=== PATIENT | female | born 1980 | race African-American/Black ===

== ENCOUNTER 2016-04-14 19:59 | Emergency (ER) | payer SELFPAY ==
--- NOTE | 2016-04-14 20:32 | ER Document Report ---
ED Medical Screen (RME) - General Stated Complaint: LEFT SIDE PAIN Notes: Left sided sore throat headache torso pain I greeted and performed a rapid initial assessment of this patient. Comprehensive ED assessment and evaluation of the patient, analysis of test results and completion of the medical decision making process will be conducted by additional ED providers. TRAVEL OUTSIDE OF THE [place] IN LAST 30 DAYS: Yes COUNTRY TRAVELED TO/FROM: [facility] - Related Data Allergies/Adverse Reactions: Penicillins Allergy (Verified 02/01/16 18:39) Past Medical History Neurological Medical History: Reports: Hx Migraine Renal/ Medical History: Denies: Hx Ectopic GI Medical History: Reports: Hx Gastroesophageal Reflux Disease Musculoskeltal Medical History: Reports Hx Musculoskeletal Trauma Psychiatric Medical History: Reports: Hx Depression - anxiety Traumatic Medical History: Reports: Hx Fractures Past Surgical History: Reports: Hx Oral Surgery, Hx Tubal Ligation - Immunizations Immunizations up to date: No Hx Diphtheria, Pertussis, Tetanus Vaccination: No - Tetanus
[2016-04-14] MEDS ORDERED: HYDROCODONE/ACETAMINOPHEN 5-325 MG TABLET PO ONE (21:52)
[2016-04-14] MEDS ORDERED: CLINDAMYCIN HCL 150 MG CAPSULE PO ONE (21:52)
--- NOTE | 2016-04-14 21:53 | ER Document Report ---
ED ENT - General Chief Complaint: Pain All Over Stated Complaint: LEFT SIDE PAIN Time seen by provider: 21:53 Mode of Arrival: Ambulatory Information source: Patient TRAVEL OUTSIDE OF THE [place] IN LAST 30 DAYS: Yes COUNTRY TRAVELED TO/FROM: [facility] - HPI Patient complains to provider of: Nose problem, Throat problem Onset: Yesterday Onset/Duration: Persistent Quality of pain: Achy Severity: Moderate Pain Level: 3 Location of pain: Ears, Sinus, Throat Associated symptoms: Congestion, Headache, Sinus pain, Sore throat Similar symptoms previously: No Recently seen / treated by doctor: No Notes: Patient is a 35-year-old female with no past medical history presenting to the emergency room complaining of sore throat, body aches, nasal congestion, headache, symptoms have been going on for the past 2 days, she denies a fever, nonproductive cough, no nausea, vomiting or diarrhea, patient reports her children of been sick with upper respiratory symptoms recently, patient is a smoker - Related Data Allergies/Adverse Reactions: Penicillins Allergy (Verified 02/01/16 18:39) Past Medical History - General Information source: Patient - Social History Smoking Status: Current Every Day Smoker Family History: Reviewed & Not Pertinent, Arthritis, CAD, DM, Hyperlipidemia, Hypertension, Malignancy Patient has suicidal ideation: No Patient has homicidal ideation: No Neurological Medical History: Reports: Hx Migraine Renal/ Medical History: Denies: Hx Ectopic , Hx Peritoneal Dialysis GI Medical History: Reports: Hx Gastroesophageal Reflux Disease Musculoskeltal Medical History: Reports Hx Musculoskeletal Trauma Psychiatric Medical History: Reports: Hx Depression - anxiety Traumatic Medical History: Reports: Hx Fractures Past Surgical History: Reports: Hx Oral Surgery, Hx Tubal Ligation - Immunizations Immunizations up to date: No Hx Diphtheria, Pertussis, Tetanus Vaccination: No - Tetanus Review of Systems - Review of Systems Constitutional: No symptoms reported EENT: See HPI Cardiovascular: No symptoms reported Respiratory: No symptoms reported Gastrointestinal: No symptoms reported Genitourinary: No symptoms reported Female Genitourinary: No symptoms reported Musculoskeletal: See HPI Skin: No symptoms reported Hematologic/Lymphatic: No symptoms reported Neurological/Psychological: See HPI -: Yes All other systems reviewed and negative Physical Exam - Vital signs Vitals: Temp Pulse Resp BP Pulse Ox 98.1 F 86 20 117/68 98 04/14/16 20:22 04/14/16 20:22 04/14/16 20:22 04/14/16 20:22 04/14/16 20:22 Interpretation: Normal - General General appearance: Alert Notes: Patient appears uncomfortable - HEENT Head: Normocephalic, Atraumatic Eyes: Normal Conjunctiva: Normal Extraocular movements intact: Yes Eyelashes: Normal Pupils: PERRL Pharynx: Erythema, Exudate, Tonsillar hypertrophy Neck: Normal - Respiratory Respiratory status: No respiratory distress Chest status: Nontender Breath sounds: Normal Chest palpation: Normal - Cardiovascular Rhythm: Regular Heart sounds: Normal auscultation Murmur: No - Abdominal Inspection: Normal Distension: No distension Bowel sounds: Normal Tenderness: Nontender Organomegaly: No organomegaly - Back Back: Normal, Nontender - Extremities General upper extremity: Normal inspection, Nontender, Normal color, Normal ROM , Normal temperature General lower extremity: Normal inspection, Nontender, Normal color, Normal ROM , Normal temperature, Normal weight bearing. No: Nelson's sign - Neurological Neuro grossly intact: Yes Cognition: Normal Orientation: AAOx4 [place] Coma Scale Eye Opening: Spontaneous [place] Coma Scale Verbal: Oriented [place] Coma Scale Motor: Obeys Commands One[place] Coma Scale Total: 15 Speech: Normal Motor strength normal: LUE, RUE, LLE, RLE Sensory: Normal - Psychological Associated symptoms: Normal affect, Normal mood - Skin Skin Temperature: Warm Skin Moisture: Dry Skin Color: Normal Course - Re-evaluation Re-evalutation: 04/15/16 00:47 Patient physical exam findings consistent with strep pharyngitis, she was started on antibiotics for this, advised to rest, drink plenty of fluids, follow up with a primary care provider or return if symptoms worsen, patient acknowledges understanding and agreement with this plan - Vital Signs Vital signs: Temp Pulse Resp BP Pulse Ox 98.2 F 85 16 120/69 100 04/14/16 22:13 04/14/16 22:13 04/14/16 22:13 04/14/16 22:13 04/14/16 22:13 Discharge - Discharge Clinical Impression: Strep pharyngitis Condition: Stable Disposition: HOME, SELF-CARE Instructions: Strep Throat ([facility]), Oral Narcotic Medication ([facility]) Additional Instructions: Follow up with your primary care provider in one to 2 days. Return to the emergency room immediately if symptoms worsen or any additional concerns. Drink plenty fluids and get plenty or rest. Tylenol or Motrin as needed for pain or fever. Prescriptions: Clindamycin HCl 300 mg PO TID #30 capsule Hydrocodone/Acetaminophen [Hydrocodon-Acetaminophen 5-325] 1 each PO Q6 #20 tablet Referrals: EARNEST BRUNO MD [Primary Care Provider] - Follow up as needed
[2016-04-14] MEDS ORDERED: HYDROCODONE/ACETAMINOPHEN 5-325 MG 6 TAB/DSPK PO PRN (22:04)
[2016-04-14 22:32] VITALS: BP 120/69
== END 2016-04-14 22:13 | disposition home or self-care (01) ==
LOC: ER 19:59
DX: J02.0 Streptococcal pharyngitis (principal); M79.1 Myalgia; R51 Headache; F17.200 Nicotine dependence, unspecified, uncomplicated; Z88.0 Allergy status to penicillin; Z98.51 Tubal ligation status
CPT/HCPCS: 99283

== ENCOUNTER 2016-05-25 21:45 | Emergency (ER) | payer SELFPAY ==
[2016-05-25] MEDS ORDERED: ONDANSETRON HCL INJ/PF 4 MG/2 ML SDV IV ONE (21:47)
[2016-05-25] MEDS ORDERED: NORMAL SALINE 1000 ML 1,000 ML IV PRN (21:47)
[2016-05-25] MEDS ORDERED: KETOROLAC TROMETHAMINE INJ/PF 30 MG/1 ML SDV IV ONE (21:48)
--- NOTE | 2016-05-25 21:48 | ER Document Report ---
ED Flu Like - General Stated Complaint: POSSIBLE FLU SYMPTOMS Time seen by provider: 21:48 Mode of Arrival: Ambulatory Information source: Patient TRAVEL OUTSIDE OF THE [place] IN LAST 30 DAYS: Yes - Related Data Allergies/Adverse Reactions: Penicillins Allergy (Verified 02/01/16 18:39) Past Medical History - Social History Family History: Reviewed & Not Pertinent, Arthritis, CAD, DM, Hyperlipidemia, Hypertension, Malignancy Neurological Medical History: Reports: Hx Migraine Renal/ Medical History: Denies: Hx Ectopic , Hx Peritoneal Dialysis GI Medical History: Reports: Hx Gastroesophageal Reflux Disease Musculoskeltal Medical History: Reports Hx Musculoskeletal Trauma Psychiatric Medical History: Reports: Hx Depression - anxiety Traumatic Medical History: Reports: Hx Fractures Past Surgical History: Reports: Hx Oral Surgery, Hx Tubal Ligation - Immunizations Immunizations up to date: No Hx Diphtheria, Pertussis, Tetanus Vaccination: No - Tetanus
--- NOTE | 2016-05-25 21:57 | ER Document Report ---
ED Flu Like - General Stated Complaint: POSSIBLE FLU SYMPTOMS Time seen by provider: 21:55 Mode of Arrival: Ambulatory Information source: Patient TRAVEL OUTSIDE OF THE [place] IN LAST 30 DAYS: Yes - HPI Patient complains to provider of: fever, body aches, nausea, vomiting, diarrhea Onset: Other - 3 days Timing/Duration: Persistent Quality of pain: Achy Severity: Moderate Pain Level: 2 Associated symptoms: Body/muscle aches, Chills, Diarrhea, Fever, Nausea, Vomiting Similar symptoms previously: No Recently seen / treated by doctor: No Notes: Patient is a 35-year-old female with no past medical history who presents to the emergency room complaining of flulike symptoms 3-4 days, with body aches, fever of 102.1, nausea, vomiting, diarrhea, patient reports multiple sick contacts recently as well, including her son who is being seen in the emergency room for these symptoms as well, patient did not receive a flu vaccination this season - Related Data Allergies/Adverse Reactions: Penicillins Allergy (Verified 02/01/16 18:39) Past Medical History - General Information source: Patient - Social History Smoking Status: Unknown if Ever Smoked Family History: Reviewed & Not Pertinent, Arthritis, CAD, DM, Hyperlipidemia, Hypertension, Malignancy Neurological Medical History: Reports: Hx Migraine Renal/ Medical History: Denies: Hx Ectopic , Hx Peritoneal Dialysis GI Medical History: Reports: Hx Gastroesophageal Reflux Disease Musculoskeltal Medical History: Reports Hx Musculoskeletal Trauma Psychiatric Medical History: Reports: Hx Depression - anxiety Traumatic Medical History: Reports: Hx Fractures Past Surgical History: Reports: Hx Oral Surgery, Hx Tubal Ligation - Immunizations Immunizations up to date: No Hx Diphtheria, Pertussis, Tetanus Vaccination: No - Tetanus Review of Systems - Review of Systems Constitutional: See HPI EENT: No symptoms reported Cardiovascular: No symptoms reported Respiratory: No symptoms reported Gastrointestinal: See HPI Genitourinary: No symptoms reported Female Genitourinary: No symptoms reported Musculoskeletal: See HPI Skin: No symptoms reported Hematologic/Lymphatic: No symptoms reported Neurological/Psychological: No symptoms reported -: Yes All other systems reviewed and negative Physical Exam - Vital signs Interpretation: Normal - General General appearance: Appears well, Alert - HEENT Head: Normocephalic, Atraumatic Eyes: Normal Conjunctiva: Normal Extraocular movements intact: Yes Eyelashes: Normal Pupils: PERRL Mucous membranes: Normal Pharynx: Erythema. No: Exudate, Tonsillar hypertrophy Neck: Normal - Respiratory Respiratory status: No respiratory distress Chest status: Nontender Breath sounds: Normal Chest palpation: Normal - Cardiovascular Rhythm: Regular Heart sounds: Normal auscultation Murmur: No - Abdominal Inspection: Normal Distension: No distension Bowel sounds: Normal Tenderness: Nontender Organomegaly: No organomegaly - Back Back: Normal, Nontender - Extremities General upper extremity: Normal inspection, Nontender, Normal color, Normal ROM , Normal temperature General lower extremity: Normal inspection, Nontender, Normal color, Normal ROM , Normal temperature, Normal weight bearing. No: Nelson's sign - Neurological Neuro grossly intact: Yes Cognition: Normal Orientation: AAOx4 [place] Coma Scale Eye Opening: Spontaneous [place] Coma Scale Verbal: Oriented [place] Coma Scale Motor: Obeys Commands One[place] Coma Scale Total: 15 Speech: Normal Motor strength normal: LUE, RUE, LLE, RLE Sensory: Normal - Psychological Associated symptoms: Normal affect, Normal mood - Skin Skin Temperature: Warm Skin Moisture: Dry Skin Color: Normal Course - Re-evaluation Re-evalutation: 05/25/16 23:20 Patient resting comfortably, reports feeling much better after IV fluids and medications, lab findings were discussed with her at bedside which are consistent with influenza B, patient was advised for supportive care, her symptoms have been going on for 3 or 4 days of Tamiflu would not be indicated at this point in time, she was advised to follow-up with her primary care provider or return if symptoms worsen, patient acknowledges understanding and agreement with this plan - Laboratory Result Diagrams: 05/25/16 22:34 05/25/16 22:34 Laboratory results interpreted by me: 05/25/16 05/25/16 22:34 22:34 Monocytes % 14.3 H Sodium 136.7 L Discharge - Discharge Clinical Impression: Influenza B Condition: Stable Disposition: HOME, SELF-CARE Instructions: Influenza ([facility]) Additional Instructions: Encourage plenty fluids. Tylenol or Motrin as needed for fever. Follow-up with your primary care provider in one to 2 days. Return to the emergency room immediately if symptoms worsen or any additional concerns.
[2016-05-25 22:52] LABS: ABSOLUTE LYMPHOCYTES (AUTO) 1.2 10^3/uL (0.5-4.7); ABSOLUTE MONOCYTES (AUTO) 0.7 10^3/uL (0.1-1.4); ABSOLUTE NEUT (AUTO) 3.1 10^3/uL (1.7-8.2); BASOPHILS % (AUTO) 0.3 % (0-2); EOSINOPHILS % (AUTO) 0.1 % (0-6); HEMATOCRIT 41.4 % (36.0-47.0); HEMOGLOBIN 13.9 g/dL (12.0-15.5); HGB HCT DIFFERENCE 0.3; LYMPHOCYTES % (AUTO) 23.3 % (13-45); MEAN CORPUSCULAR HEMOGLOBIN 28.5 pg (27.0-33.4); MEAN CORPUSCULAR HGB CONC 33.7 g/dL (32.0-36.0); MEAN CORPUSCULAR VOLUME 85 fl (80-97); MONOCYTES % (AUTO) 14.3 % (3-13); RED BLOOD COUNT 4.89 10^6/uL (3.72-5.28); RED CELL DISTRIBUTION WIDTH 13.1 % (11.5-14.0); WHITE BLOOD COUNT 4.9 10^3/uL (4.0-10.5)
[2016-05-25 23:09] LABS: BLOOD UREA NITROGEN 11 mg/dL (7-20); CARBON DIOXIDE 22 mmol/L (22-30); CHLORIDE 103 mmol/L (98-107); CREATININE RESULT 0.73 mg/dL (0.52-1.25); GLUCOSE 92 mg/dL (75-110); POTASSIUM 3.6 mmol/L (3.6-5.0); SODIUM 136.7 mmol/L (137-145)
[2016-05-25 23:10] LABS: ALANINE AMINOTRANSFERASE 28 U/L (9-52); ALKALINE PHOSPHATASE 105 U/L (38-126); ANION GAP 12 (5-19); ASPARTATE AMINO TRANSFERASE 24 U/L (14-36); BILIRUBIN,TOTAL 0.4 mg/dL (0.2-1.3); TOTAL PROTEIN 7.3 g/dL (6.3-8.2)
[2016-05-26 00:11] LABS: APPEARANCE,URINE SLIGHTLY-CLOUDY; BILIRUBIN,URINE NEGATIVE (NEGATIVE); GLUCOSE, URINE NEGATIVE (NEGATIVE); KETONES,URINE TRACE mg/dL (NEGATIVE); LEUKOCYTE ESTERASE,URINE NEGATIVE (NEGATIVE); NITRITE,URINE NEGATIVE (NEGATIVE); PROTEIN,URINE NEGATIVE (NEGATIVE); UROBILINOGEN,URINE NEGATIVE mg/dL (<2.0)
== END 2016-05-26 00:23 | disposition home or self-care (01) ==
LOC: ER 21:45
DX: J11.1 Influenza due to unidentified influenza virus with other respiratory manifestations (principal); R50.9 Fever, unspecified; M79.1 Myalgia; R11.2 Nausea with vomiting, unspecified; R19.7 Diarrhea, unspecified; Z88.0 Allergy status to penicillin; Z98.51 Tubal ligation status
CPT/HCPCS: 99283; 96361; 96374; 96375; 36415; 84703; 85025; 80053; 81001; 87804; J1885; J2405; J7030

== ENCOUNTER → 2016-10-16 | Outpatient (CLI) | payer MEDICAID ==
--- NOTE | 2016-10-16 11:44 | WOMENS IMAGING REPORT ---
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 IMPRESSION: Please see combined report for performance of procedure and radiologic supervision and i nterpretation.
--- NOTE | 2016-10-17 08:32 | WOMENS IMAGING REPORT ---
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 TECHNIQUE: Standard craniocaudal and mediolateral oblique views of each breast recorded using digita l acquisition. Additional true lateral views of each breast were obtained. LIMITATIONS: None. FINDINGS: RIGHT BREAST MASSES: No suspicious masses. CALCIFICATIONS: No new or suspicious calcifications. ARCHITECTURAL DISTORTION: None. DEVELOPING DENSITY: None. ASYMMETRY: None noted. OTHER: Due to the patient's clinical history ultrasound will be obtained for further evaluation. LEFT BREAST MASSES: No suspicious masses. CALCIFICATIONS: No new or suspicious calcifications. ARCHITECTURAL DISTORTION: None. DEVELOPING DENSITY: None. ASYMMETRY: None noted. OTHER: Due to the patient's clinical history ultrasound will be obtained for further evaluation. Read with the assistance of CAD: .[facility] - R2 Cenova Version 1.3 .[facility] - R2 Cenova Version 1.3 .[facility] - R2 Cenova Version 2.4 .[facility] - R2 Cenova Version 2.4 .[facility] - R2 Pricing Analyst Version 9.2 BREAST ULTRASOUND: TECHNIQUE: Static and dynamic grayscale images acquired of the right and left breast in the specific areas of clinical/mammographic concern. Selected color Doppler images recorded. ELASTOGRAPHY PERFORMED: No. LIMITATIONS: None. FINDINGS: MASS: In the right breast 2 small well demarcated ovoid hypoechoic masses are identified 1 measuring 1.5 x 0.8 x 1 point 0 cm and a 2nd measuring 1.3 x 0.6 x 1.1 cm in diameters which have the appearanc e of small fibroadenomas. In the left breast 3 small well demarcated ovoid hypoechoic masses are kimber ntified 1 measuring 1.4 x 0.9 x 1.7 cm in diameters, a 2nd measuring 1.3 x 0.9 x 1.1 cm in diameters, and a 3rd measuring 5 x 6 mm in diameters which have the appearance of small fibroadenomas. No othe r discrete solid or cystic masses are identified. ELASTOGRAPHY CHARACTERISTICS: Not applicable. OTHER: No other significant finding. IMPRESSION: Probably benign findings BREAST DENSITY: c. The breasts are heterogeneously dense, which may obscure small masses. BIRAD: 3 Probably benign finding. Initial short-interval follow-up suggested. RECOMMENDATION: RECOMMENDED FOLLOW UP: Recommend followup breast ultrasounds in 6 months to confirm the stability of these lesions. SPECIFIC INTERVENTION/IMAGING/CONSULTATION RECOMMENDED:No additional intervention/ imaging/consultati on needed at this time. COMMUNICATION:The imaging findings were not discussed with the patient. Her referring provider has be en notified of the findings. COMMENT: The patient has been notified of the results by letter per [place] requirements. Additional no tification policies are in place for contacting patient with suspicious or incomplete findings. Quality ID #[id number]: The [employer] recommends an annual screening mammogram for women aged 40 years or over. This facility utilizes a reminder system to ensure that all patients receive reminder letters, and/or direct phone calls for appointments. This includes reminders for routine scr eening mammograms, diagnostic mammograms, or other Breast Imaging Interventions when appropriate. Th is patient will be placed in the appropriate reminder system. The [employer] (ACR) has developed recommendations for screening MRI of the breast s in certain patient populations, to be used in conjunction with mammography. Breast MRI surveillanc e may be appropriate for women with more than 20% lifetime risk of developing breast cancer as deter mined by genetic testing, significant family history of the disease, or history of mantle radiation f or Hodgkins Disease. ACR Practice Guidelines 2008. TECHNICAL DOCUMENTATION: FINDING NUMBER: (1) ASSESSMENT: (1) JOB ID: [id number] [employer]- All Rights Reserved
== END ==
LOC: WI 11:33
PROVIDERS: ATTEND Physician Assistant
DX: N60.11 Diffuse cystic mastopathy of right breast (principal)
CPT/HCPCS: 76641; G0204; 77066

== ENCOUNTER 2017-02-05 19:20 | Emergency (ER) | payer MEDICAID ==
[2017-02-05] MEDS ORDERED: PSEUDOEPHEDRINE HCL 30 MG TABLET PO ONE (21:12)
[2017-02-05] MEDS ORDERED: LORATADINE 10 MG TABLET PO ONE (21:12)
[2017-02-05] MEDS ORDERED: GUAIFENESIN 600 MG TABLET.SA PO ONE (21:12)
[2017-02-05] MEDS ORDERED: IBUPROFEN 800 MG TABLET PO ONE (21:13)
--- NOTE | 2017-02-05 21:19 | ER Document Report ---
ED Flu Like - General Chief Complaint: Cough Stated Complaint: COUGH,CONGESTION Time Seen by Provider: 02/05/17 20:51 Mode of Arrival: Ambulatory Information source: Patient Notes: 36-year-old female presents to ED for cough cold congestion 4 days. She states she has been taking [id number] Robitussin and cough medicine. She states she has fevers and chills at times. TRAVEL OUTSIDE OF THE [place] IN LAST 30 DAYS: No - HPI Onset: Other - 4 days Timing/Duration: Intermittent Quality of pain: Achy Severity: Moderate Pain Level: 3 CO exposure: No Associated symptoms: Body/muscle aches, Nonproductive cough, Fever, Rhinnorhea, Sinus pain/drainage, Sore throat Similar symptoms previously: Yes Recently seen / treated by doctor: No - Related Data Allergies/Adverse Reactions: Penicillins Allergy (Verified 05/26/16 01:04) Past Medical History - General Information source: Patient - Social History Smoking Status: Current Every Day Smoker Cigarette use (# per day): Yes - 3-4 cigarettes a day Smoking Education Provided: Yes - Less than 2 minutes Frequency of alcohol use: Occasional Drug Abuse: None Occupation: None Lives with: Family - Her children Family History: Reviewed & Not Pertinent, Arthritis, CAD, DM, Hyperlipidemia, Hypertension, Malignancy. denies: COPD, CVA, Thyroid Disfunction Patient has suicidal ideation: No Patient has homicidal ideation: No - Past Medical History Cardiac Medical History: Reports: None Pulmonary Medical History: Reports: None EENT Medical History: Reports: None Neurological Medical History: Reports: Hx Migraine Endocrine Medical History: Reports: None Renal/ Medical History: Reports: None Malignancy Medical History: Reports: None GI Medical History: Reports: Hx Gastroesophageal Reflux Disease Musculoskeltal Medical History: Reports Hx Musculoskeletal Trauma Skin Medical History: Reports None Psychiatric Medical History: Reports: Hx Depression - anxiety Traumatic Medical History: Reports: Hx Fractures - Toe Infectious Medical History: Reports: None Past Surgical History: Reports: Hx Oral Surgery, Hx Tubal Ligation - Immunizations Immunizations up to date: No Hx Diphtheria, Pertussis, Tetanus Vaccination: No - Tetanus Review of Systems - Review of Systems Constitutional: Fever, Recent illness EENT: Nose congestion, Sinus discharge, Throat pain, Mouth pain Cardiovascular: No symptoms reported Respiratory: Cough Gastrointestinal: No symptoms reported Genitourinary: No symptoms reported Female Genitourinary: No symptoms reported Musculoskeletal: No symptoms reported Skin: No symptoms reported Hematologic/Lymphatic: No symptoms reported Neurological/Psychological: No symptoms reported Physical Exam - Vital signs Vitals: Temp Pulse Resp BP Pulse Ox 98.8 F 72 18 120/65 98 02/05/17 19:48 02/05/17 19:48 02/05/17 19:48 02/05/17 19:48 02/05/17 19:48 Interpretation: Normal - General General appearance: Appears well, Alert - HEENT Head: Normocephalic, Atraumatic Eyes: Normal Pupils: PERRL Ears: Normal External canal: Normal Tympanic membrane: Normal Nasal: Purulent discharge, Swelling Mouth/Lips: Normal Mucous membranes: Normal Pharynx: Post nasal drainage Neck: Normal - Respiratory Respiratory status: No respiratory distress Chest status: Nontender Breath sounds: Nonproductive cough. No: Rales, Rhonchi, Stridor, Wheezing Chest palpation: Normal - Cardiovascular Rhythm: Regular Heart sounds: Normal auscultation Murmur: No - Abdominal Inspection: Normal Distension: No distension Bowel sounds: Normal Tenderness: Nontender Organomegaly: No organomegaly - Back Back: Normal, Nontender - Extremities General upper extremity: Normal inspection, Nontender, Normal color, Normal ROM , Normal temperature General lower extremity: Normal inspection, Nontender, Normal color, Normal ROM , Normal temperature, Normal weight bearing. No: Nelson's sign - Neurological Neuro grossly intact: Yes Cognition: Normal Orientation: AAOx4 [place] Coma Scale Eye Opening: Spontaneous [place] Coma Scale Verbal: Oriented [place] Coma Scale Motor: Obeys Commands [place] Coma Scale Total: 15 Speech: Normal Motor strength normal: LUE, RUE, LLE, RLE Sensory: Normal - Psychological Associated symptoms: Normal affect, Normal mood - Skin Skin Temperature: Warm Skin Moisture: Dry Skin Color: Normal Course - Re-evaluation Re-evalutation: 02/05/17 21:38 Symptoms consistent with an upper respiratory infection. Patient was treated with Sudafed Claritin and Mucinex and ibuprofen and discharged home to follow- up with her primary doctor. Patient encouraged to quit smoking. - Vital Signs Vital signs: Temp Pulse Resp BP Pulse Ox 98.8 F 72 18 120/65 98 02/05/17 19:48 02/05/17 19:48 02/05/17 19:48 02/05/17 19:48 02/05/17 19:48 Discharge - Discharge Clinical Impression: URI (upper respiratory infection) Qualifiers: URI type: unspecified URI Qualified Code(s): J06.9 - Acute upper respiratory infection, unspecified Condition: Stable Disposition: HOME, SELF-CARE Additional Instructions: UPPER RESPIRATORY ILLNESS: You have a viral infection of the respiratory passages -- a "cold." This common infection causes nasal congestion, drainage, and often sore throat and cough. It is highly contagious. The disease usually lasts about 10 to 14 days. There is no "cure" for the viral infection -- it must run its course. If there is a complication, such as bacterial infection in the nose, sinuses, middle ear, or bronchial tubes, antibiotics may be required. The antibiotics won't affect the virus. Drink plenty of fluids. A humidifier may help. An expectorant medication or decongestant may make you more comfortable. Use acetaminophen or ibuprofen for fever or aches. See the doctor if fever persists over two days, if there is any significant worsening of your symptoms, or if you simply fail to improve as expected. You were given Sudafed, Mucinex Claritin, and ibuprofen in the emergency room if these improve your condition please take them at home. DECONGESTANT MEDICATION: A decongestant medicine has been prescribed. Often this medicine is combined in the same tablet with an antihistamine or expectorant. This type of medicine is helpful in treating a bad cold or sinus condition, as well as in treatment of the nasal congestion of hay fever. It is not of much benefit for lung infections. Decongestant medicines are related to stimulants. They can cause an increase in blood pressure and heart rate. Persons with heart disease and high blood pressure should not take decongestants without discussing this with the physician. If you develop palpitations, chest pain, headache, or tremors, stop the medicine and consult your physician. COUGH-SUPPRESSANT & EXPECTORANT MEDICATION: You are to use a cough medication as needed for relief of symptoms. This medicine is a combination of an expectorant (to make the mucous thinner and more easily "coughed up") and a cough suppressant (to reduce the frequency of coughing). The cough-suppressant medicine is related to narcotics. You may experience mild nausea and sleepiness. Some patients who are very sensitive to narcotics may have stomach pain from this medicine. Taking the medicine with food reduces these side effects. Do not drive or work with machinery until you know how this medicine affects you. The expectorant should have no side effects. Iodine-containing expectorants (such as organidin) should not be taken by persons with active thyroid disease unless approved by your doctor. Call the doctor if you develop shortness of breath, hives, rash, itching, lightheadedness, or severe nausea and vomiting. USE OF ACETAMINOPHEN (Tylenol): Acetaminophen may be taken for pain relief or fever control. It's much safer than aspirin, offering a wider range of "safe" dosages. It is safe during . Some brand names are Tylenol, Panadol, Datril, Anacin 3, Tempra, and Liquiprin. Acetaminophen can be repeated every four hours. The following are maximum recommended dosages: >89 pounds or adults 650 mg to 900 mg Acetaminophen can be repeated every four hours. Maximum dose not to exceed 4000 mg a day. SMOKING: If you smoke, you should stop smoking. The tar and chemicals in cigarette smoke are harmful. Smoking has been shown to cause: emphysema chronic bronchitis lung cancer mouth and throat cancer stomach and pancreas cancer premature aging defects In addition, smoking increases ear and lung infections in children of smokers. Flonase nasal spray will also help your symptoms. Salt and soda solution 1 quart of water 1 tablespoon of salt 1 teaspoon of baking soda Mixed 3 ingredients together and boil for 1 minute Placed in a covered quart jar Use 1/2 ounce of cold solution to gargle 3 times a day FOLLOW-UP CARE: If you have been referred to a physician for follow-up care, call the physician s office for an appointment as you were instructed or within the next two days. If you experience worsening or a significant change in your symptoms, notify the physician immediately or return to the Emergency Department at any time for re-evaluation. Forms: Smoking Cessation Education
[2017-02-05 23:24] VITALS: BP 118/61
== END 2017-02-05 23:26 | disposition home or self-care (01) ==
LOC: ER 19:20
DX: J02.9 Acute pharyngitis, unspecified (principal); R05 Cough; R50.9 Fever, unspecified; M79.1 Myalgia; J34.89 Other specified disorders of nose and nasal sinuses; R09.81 Nasal congestion; R09.82 Postnasal drip; Z88.0 Allergy status to penicillin; F17.210 Nicotine dependence, cigarettes, uncomplicated; Z71.6 Tobacco abuse counseling
CPT/HCPCS: 99283; J3490 ×3

== ENCOUNTER → 2017-04-14 | Outpatient (CLI) | payer MEDICAID ==
--- NOTE | 2017-04-14 10:46 | WOMENS IMAGING REPORT ---
EXAM DESCRIPTION: U/S BREAST UNILATERAL, COMPL COMPLETED DATE/TIME: 04/14/2017 9:14 am REASON FOR STUDY: LUMP IN LEFT BREAST, SUBAREOLAR N63.42 UNSPECIFIED LUMP IN LEFT BREAST, SUBAREOLA R N63.11 UNSPECIFIED LUMP IN THE RIGHT BREAST, UPPER OUTER CHU COMPARISON: 10/16/2016 TECHNIQUE: Real-time and static grayscale imaging performed of the right breast targeted to the area of clinical/mammographic concern. Selected color Doppler images recorded. LIMITATIONS: None. FINDINGS: MASS: There are 2 well-circumscribed hypoechoic lesions in the 10 and 7 o'clock positions, the largest 1.2 x 0.7 x 1.6 cm. No new nodules are identified. OTHER: No other significant finding. IMPRESSION: Benign fibroadenomas. BIRAD: 2 Benign findings. RECOMMENDATION: RECOMMENDED FOLLOW-UP: Follow-up as clinically indicated. COMMENT: The [employer] (ACR) has developed recommendations for screening MRI of the breasts in certain patient populations, to be used in conjunction with mammography. Breast MRI s urveillance may be appropriate for women with more than 20% lifetime risk of developing breast cancer as determined by genetic testing, significant family history of the disease, or history of mantle r adiation for Hodgkins Disease. ACR Practice Guidelines 2008. TECHNICAL DOCUMENTATION: JOB ID: [id number] [employer]- All Rights Reserved
--- NOTE | 2017-04-14 10:47 | WOMENS IMAGING REPORT ---
EXAM DESCRIPTION: U/S BREAST UNILATERAL, COMPL COMPLETED DATE/TIME: 04/14/2017 9:14 am REASON FOR STUDY: UNSPECIFIED LUMP IN THE RIGHT BREAST, UPPER OUTER QUADRANT N63.42 UNSPECIFIED LUM P IN LEFT BREAST, SUBAREOLAR N63.11 UNSPECIFIED LUMP IN THE RIGHT BREAST, UPPER OUTER CHU COMPARISON: 10/16/2016 TECHNIQUE: Real-time and static grayscale imaging performed of the left breast targeted to the area of clinical/mammographic concern. Selected color Doppler images recorded. LIMITATIONS: None. FINDINGS: MASS: Stable well-circumscribed hypoechoic lesions typical of fibroadenomas, the largest 1 .2 x 1.6 cm 10 o'clock. OTHER: No other significant finding. IMPRESSION: Benign fibroadenomas. BIRAD: 2 Benign findings. RECOMMENDATION: RECOMMENDED FOLLOW-UP: Follow-up as clinically indicated. COMMENT: The [employer] (ACR) has developed recommendations for screening MRI of the breasts in certain patient populations, to be used in conjunction with mammography. Breast MRI s urveillance may be appropriate for women with more than 20% lifetime risk of developing breast cancer as determined by genetic testing, significant family history of the disease, or history of mantle r adiation for Hodgkins Disease. ACR Practice Guidelines 2008. TECHNICAL DOCUMENTATION: JOB ID: [id number] [employer]- All Rights Reserved
== END ==
LOC: WI 07:24
PROVIDERS: ATTEND Physician Assistant
DX: N63.42 Unspecified lump in left breast, subareolar (principal); N63.11 Unspecified lump in the right breast, upper outer quadrant
CPT/HCPCS: 76641

== ENCOUNTER 2017-04-16 20:49 | Emergency (ER) | payer MEDICAID ==
[2017-04-16] MEDS ORDERED: IBUPROFEN 800 MG TABLET PO ONE (23:10)
[2017-04-16] MEDS ORDERED: CYCLOBENZAPRINE HCL 10 MG TABLET PO ONE (23:10)
--- NOTE | 2017-04-16 23:12 | ER Document Report ---
ED Medical Screen (RME) - General Chief Complaint: Chest Pain Stated Complaint: CHEST PAIN Time Seen by Provider: 04/16/17 23:08 Mode of Arrival: Ambulatory Information source: Patient Notes: Patient is a 36-year-old female who presents to the ER today for left leg pain to her left chest. Patient denies any history of sciatica, kidney disease, heart disease, denies any injury. Patient denies any nausea or shortness of breath. She states that it hurts to move. TRAVEL OUTSIDE OF THE [place] IN LAST 30 DAYS: No COUNTRY TRAVELED TO/FROM: [facility] - Related Data Allergies/Adverse Reactions: Penicillins Allergy (Verified 05/26/16 01:04) Past Medical History - General Information source: Patient Neurological Medical History: Reports: Hx Migraine Renal/ Medical History: Denies: Hx Ectopic , Hx Peritoneal Dialysis GI Medical History: Reports: Hx Gastroesophageal Reflux Disease Musculoskeltal Medical History: Reports Hx Musculoskeletal Trauma Psychiatric Medical History: Reports: Hx Depression - anxiety Traumatic Medical History: Reports: Hx Fractures - Toe Past Surgical History: Reports: Hx Oral Surgery, Hx Tubal Ligation - Immunizations Immunizations up to date: No Hx Diphtheria, Pertussis, Tetanus Vaccination: No - Tetanus Review of Systems - Review of Systems Cardiovascular: See HPI Musculoskeletal: See HPI Physical Exam - Vital signs Vitals: Temp Pulse Resp BP Pulse Ox 98.5 F 92 18 128/73 H 98 04/16/17 20:59 04/16/17 20:59 04/16/17 20:59 04/16/17 20:59 04/16/17 20:59 - Notes Notes: PHYSICAL EXAMINATION: GENERAL: Uncomfortable appearing, but in no acute distress. LUNGS: CTAB and equal. No wheezes rales or rhonchi. HEART: Tender to palpation over left chest, regular rate and rhythm without murmurs Course - Vital Signs Vital signs: Temp Pulse Resp BP Pulse Ox 98.5 F 92 18 128/73 H 98 04/16/17 20:59 04/16/17 20:59 04/16/17 20:59 04/16/17 20:59 04/16/17 20:59
--- NOTE | 2017-04-16 23:18 | EKG REPORT ---
SEVERITY:- NORMAL ECG - SINUS RHYTHM : Confirmed by: Irene Kapoor 16-Apr-2017 23:18:01
[2017-04-16 23:37] LABS: ABSOLUTE BASOPHILS # (AUTO) 0.1 10^3/uL (0.0-0.2); ABSOLUTE EOSINOPHILS # (AUTO) 0.1 10^3/uL (0.0-0.6); ABSOLUTE MONOCYTES (AUTO) 0.5 10^3/uL (0.1-1.4); ABSOLUTE NEUT (AUTO) 3.5 10^3/uL (1.7-8.2); BASOPHILS % (AUTO) 0.8 % (0-2); EOSINOPHILS % (AUTO) 0.9 % (0-6); HEMATOCRIT 40.6 % (36.0-47.0); HEMOGLOBIN 13.7 g/dL (12.0-15.5); LYMPHOCYTES % (AUTO) 42.2 % (13-45); MEAN CORPUSCULAR HEMOGLOBIN 29.2 pg (27.0-33.4); MEAN CORPUSCULAR HGB CONC 33.6 g/dL (32.0-36.0); MEAN CORPUSCULAR VOLUME 87 fl (80-97); MONOCYTES % (AUTO) 7.3 % (3-13); PLATELET COUNT 298 10^3/uL (150-450); RED BLOOD COUNT 4.68 10^6/uL (3.72-5.28); RED CELL DISTRIBUTION WIDTH 13.3 % (11.5-14.0); SEGMENTED NEUTROPHILS % (AUTO) 48.8 % (42-78); TOTAL CELLS COUNTED % (AUTO) 100 %; WHITE BLOOD COUNT 7.1 10^3/uL (4.0-10.5)
[2017-04-16 23:48] LABS: ALANINE AMINOTRANSFERASE 20 U/L (9-52); ALKALINE PHOSPHATASE 114 U/L (38-126); ANION GAP 12 (5-19); ASPARTATE AMINO TRANSFERASE 18 U/L (14-36); BILIRUBIN,DIRECT 0.2 mg/dL (0.0-0.4); BILIRUBIN,TOTAL 0.2 mg/dL (0.2-1.3); BLOOD UREA NITROGEN 13 mg/dL (7-20); CALCIUM 9.2 mg/dL (8.4-10.2); CARBON DIOXIDE 23 mmol/L (22-30); CHLORIDE 107 mmol/L (98-107); CREATINE KINASE 80 U/L (30-135); GLUCOSE 90 mg/dL (75-110); POTASSIUM 3.9 mmol/L (3.6-5.0)
[2017-04-17 00:03] LABS: CREATINE KINASE MB < 0.22 ng/mL (<4.55); TROPONIN I < 0.012 ng/mL
--- NOTE | 2017-04-17 00:40 | ER Document Report ---
ED General - General Chief Complaint: Chest Pain Stated Complaint: CHEST PAIN Time Seen by Provider: 04/16/17 23:08 Mode of Arrival: Ambulatory TRAVEL OUTSIDE OF THE [place] IN LAST 30 DAYS: No COUNTRY TRAVELED TO/FROM: [facility] Notes: 36-year-old female with history of migraines presents with left leg pain. She states she has noticed it for about a week. It is diffuse with associated pins and needles feeling. She denies any injury but does state she stays in a seated position from 6-8 hours a day on the edge of her bed. Often she has leg swelling but this goes to both legs and then resolves when she elevates them. The swelling resolved but she was left with discomfort. It is worse with movement. She has notes some mild weakness in the leg but she is able to ambulate without difficulty. Denies any trauma. She did note the pain shooting to her left chest. She notes the pain is worse with movement. No pain with deep inspiration. Patient denies any history of sciatica, kidney disease, heart disease, denies any injury. Patient denies any nausea or shortness of breath, cough, hemoptysis, near syncope. Denies hormone use. No excessive sedimentation otherwise. She states she has had fairly recent breast ultrasound which showed fibrocystic change. - Related Data Allergies/Adverse Reactions: Penicillins Allergy (Verified 05/26/16 01:04) Past Medical History - General Information source: Patient - Social History Smoking Status: Unknown if Ever Smoked Family History: Reviewed & Not Pertinent, Arthritis, CAD, DM, Hyperlipidemia, Hypertension, Malignancy. denies: COPD, CVA, Thyroid Disfunction Neurological Medical History: Reports: Hx Migraine Renal/ Medical History: Denies: Hx Ectopic , Hx Peritoneal Dialysis GI Medical History: Reports: Hx Gastroesophageal Reflux Disease Musculoskeltal Medical History: Reports Hx Musculoskeletal Trauma Psychiatric Medical History: Reports: Hx Depression - anxiety Traumatic Medical History: Reports: Hx Fractures - Toe Past Surgical History: Reports: Hx Oral Surgery, Hx Tubal Ligation - Immunizations Immunizations up to date: No Hx Diphtheria, Pertussis, Tetanus Vaccination: No - Tetanus Review of Systems - Review of Systems -: Yes All other systems reviewed and negative Physical Exam - Vital signs Vitals: Temp Pulse Resp BP Pulse Ox 98.5 F 92 18 128/73 H 98 04/16/17 20:59 04/16/17 20:59 01/17/18 20:59 04/16/17 20:59 04/16/17 20:59 Interpretation: Hypertensive - Notes Notes: Physical Exam: GENERAL: VS as per nursing doc. Well-appearing, well-nourished and in no acute distress. HEAD: Atraumatic, normocephalic. EYES: Pupils equal round and reactive to light, extraocular movements intact, sclera anicteric, no conjunctival injection or discharge. ENT: Nares patent, oropharynx clear without exudates. Moist mucous membranes. NECK: Normal range of motion, supple without lymphadenopathy. No JVD. No Carotid Bruits. LUNGS: Breath sounds clear to auscultation bilaterally and equal. No wheezes rales or rhonchi. There is reproducible tenderness in the left pectoral area. HEART: Normal S1S2. Regular rate and rhythm without murmurs. Equal peripheral pulses. ABDOMEN: Soft, non-tender. No pulsatile mass. EXTREMITIES: Normal range of motion. No calf tenderness. Negative Homans. No edema. Good range of motion without pain elicited. 5/5 lower extremity strength. NEUROLOGICAL: Cranial nerves grossly intact. Normal speech. Normal sensory and motor exams. No gross cerebellar abnormalities. PSYCH: Normal mood, normal affect. SKIN: Warm, dry, no cyanosis, no splinter hemorrhages. Cap refill < 2 sec. Course - Re-evaluation Re-evalutation: 04/17/17 01:56 Patient's PERC and well's score are essentially negative. D-dimer was negative. Clinically she does not appear to have any evidence of cardiac chest pain as the pain is completely reproducible. Her leg discomfort and distribution seems more consistent with sciatica. At this time, we will discharge the patient with return precautions and follow-up recommendations discussed and understood. Verbal discharge instructions given at the bedside and opportunity for questions given and answered. Medication warnings reviewed. Patient is in agreement with this plan and has verbalized understanding of return precautions and the need for primary care follow-up in the next 24-72 hours. - Vital Signs Vital signs: Temp Pulse Resp BP Pulse Ox 98.7 F 60 18 110/63 100 04/17/17 03:00 04/17/17 03:00 04/17/17 03:00 04/17/17 03:00 04/17/17 03:00 - Laboratory Result Diagrams: 04/16/17 23:15 04/16/17 23:15 - EKG Interpretation by Vt EKG shows normal: Sinus rhythm - Rate 75, normal QRS, no clear ischemia. Normal intervals. Discharge - Discharge Clinical Impression: Chest wall pain, Leg pain Condition: Good Disposition: HOME, SELF-CARE Instructions: Anti-Inflammatory Medication ([facility]), Chest Wall Pain ([facility]), Oral Narcotic Medication ([facility]) Additional Instructions: Return for worsening or concern. Please contact your physician for follow-up. Start initially with an anti-inflammatory such as ibuprofen or Aleve for discomfort. Prescriptions: Acetaminophen with Codeine [Tylenol #3 Tablet] 1 - 2 each PO Q6HP PRN #14 tablet PRN Reason: For Pain Acetaminophen with Codeine [Tylenol #3 Tablet] 1 - 2 each PO Q6HP PRN #14 tablet PRN Reason: For Pain Prednisone [Deltasone 20 mg Tablet] 2 tab PO DAILY 5 Days #10 tablet Prednisone [Deltasone 20 mg Tablet] 2 tab PO DAILY 5 Days #10 tablet Referrals: [facility] [Provider Group] - Follow up as needed
--- NOTE | 2017-04-17 01:07 | RADIOLOGY REPORT (SQ) ---
EXAM DESCRIPTION: CHEST SINGLE VIEW CLINICAL HISTORY: 36 years, Female, left chest pain COMPARISON: None. FINDINGS: Normal lung volume, clear parenchyma, normal cardiac silhouette, and intact bony thorax. IMPRESSION: No acute cardiopulmonary findings. 2011 [employer]- All Rights Reserved
[2017-04-17] MEDS ORDERED: METHYLPREDNISOLONE INJ 125 MG/2 ML SDV IV ONE ×2 (01:55→02:45)
[2017-04-17 04:12] VITALS: BP 110/63
== END 2017-04-17 04:12 | disposition home or self-care (01) ==
LOC: ER 20:49 → UNDOADMOB 04-17 01:01 → EH 04-17 01:01 → ER 04-17 04:12
DX: R07.89 Other chest pain (principal); M79.605 Pain in left leg
CPT/HCPCS: 93005; 99285; 96374; 36415; 82553; 82550; 85025; 80053; 84484; 85379; 71045; 93010; J3490 ×2; J2930

== ENCOUNTER 2017-07-19 14:38 | Emergency (ER) | payer MEDICAID ==
--- NOTE | 2017-07-19 15:05 | ER Document Report ---
ED Medical Screen (RME) - General Chief Complaint: Chest Pain Stated Complaint: CHEST/ARM PAIN Time Seen by Provider: 07/19/17 14:59 Mode of Arrival: Ambulatory Information source: Patient Notes: Patient is a 36-year-old female who presents to the ER today for left arm pain 3 weeks that started radiating into the left side of the chest this week. Patient has a history of anxiety and panic attacks but states that she has not had a panic attack in a few weeks and she does not think this is that. She complains of mostly the left arm pain. She has no cardiac history. She denies injury. TRAVEL OUTSIDE OF THE [place] IN LAST 30 DAYS: No COUNTRY TRAVELED TO/FROM: [facility] - Related Data Allergies/Adverse Reactions: Penicillins Allergy (Verified 07/19/17 15:00) Past Medical History - General Information source: Patient - Social History Chew tobacco use (# tins/day): No Frequency of alcohol use: Social Drug Abuse: None Neurological Medical History: Reports: Hx Migraine Renal/ Medical History: Denies: Hx Ectopic , Hx Peritoneal Dialysis GI Medical History: Reports: Hx Gastroesophageal Reflux Disease Musculoskeltal Medical History: Reports Hx Musculoskeletal Trauma Psychiatric Medical History: Reports: Hx Depression - anxiety Traumatic Medical History: Reports: Hx Fractures - Toe Past Surgical History: Reports: Hx Oral Surgery, Hx Tubal Ligation - Immunizations Immunizations up to date: No Hx Diphtheria, Pertussis, Tetanus Vaccination: No - Tetanus Review of Systems - Review of Systems Cardiovascular: See HPI Musculoskeletal: See HPI Neurological/Psychological: See HPI Physical Exam - Vital signs Vitals: Temp Pulse Resp BP Pulse Ox 98.4 F 71 16 120/69 100 07/19/17 14:51 07/19/17 14:51 07/19/17 14:51 07/19/17 14:51 07/19/17 14:51 - Notes Notes: PHYSICAL EXAMINATION: GENERAL: Well-appearing and in no acute distress. LUNGS: CTAB and equal. No wheezes rales or rhonchi. HEART: Regular rate and rhythm without murmurs Course - Vital Signs Vital signs: Temp Pulse Resp BP Pulse Ox 98.4 F 71 16 120/69 100 07/19/17 14:51 07/19/17 14:51 07/19/17 14:51 07/19/17 14:51 07/19/17 14:51
--- NOTE | 2017-07-19 15:34 | RADIOLOGY REPORT (SQ) ---
EXAM DESCRIPTION: CHEST 2 VIEWS COMPLETED DATE/TIME: 07/19/2017 3:26 pm REASON FOR STUDY: cp COMPARISON: 11/08/2012 EXAM PARAMETERS: NUMBER OF VIEWS: two views TECHNIQUE: Digital Frontal and Lateral radiographic views of the chest acquired. RADIATION DOSE: NA LIMITATIONS: none FINDINGS: LUNGS AND PLEURA: No opacities, masses or pneumothorax. No pleural effusion. MEDIASTINUM AND HILAR STRUCTURES: No masses or contour abnormalities. HEART AND VASCULAR STRUCTURES: Heart normal size. No evidence for failure. BONES: No acute findings. HARDWARE: None in the chest. OTHER: No other significant finding. IMPRESSION: NO ACUTE RADIOGRAPHIC FINDING IN THE CHEST. TECHNICAL DOCUMENTATION: JOB ID: [id number] [employer]- All Rights Reserved Reading location - IP/workstation name: [email or web address]
[2017-07-19 15:58] LABS: ABSOLUTE LYMPHOCYTES (AUTO) 2.2 10^3/uL (0.5-4.7); ABSOLUTE MONOCYTES (AUTO) 0.6 10^3/uL (0.1-1.4); ABSOLUTE NEUT (AUTO) 2.6 10^3/uL (1.7-8.2); BASOPHILS % (AUTO) 0.3 % (0-2); EOSINOPHILS % (AUTO) 0.5 % (0-6); HEMATOCRIT 39.1 % (36.0-47.0); LYMPHOCYTES % (AUTO) 40.5 % (13-45); MEAN CORPUSCULAR HEMOGLOBIN 28.9 pg (27.0-33.4); MEAN CORPUSCULAR HGB CONC 33.3 g/dL (32.0-36.0); MEAN CORPUSCULAR VOLUME 87 fl (80-97); MONOCYTES % (AUTO) 10.6 % (3-13); PLATELET COUNT 268 10^3/uL (150-450); RED BLOOD COUNT 4.51 10^6/uL (3.72-5.28); RED CELL DISTRIBUTION WIDTH 13.2 % (11.5-14.0); SEGMENTED NEUTROPHILS % (AUTO) 48.1 % (42-78); TOTAL CELLS COUNTED % (AUTO) 100 %; WHITE BLOOD COUNT 5.3 10^3/uL (4.0-10.5)
[2017-07-19 16:04] LABS: ALANINE AMINOTRANSFERASE 18 U/L (9-52); ALBUMIN 3.8 g/dL (3.5-5.0); ALKALINE PHOSPHATASE 95 U/L (38-126); ANION GAP 10 (5-19); ASPARTATE AMINO TRANSFERASE 15 U/L (14-36); BILIRUBIN,DIRECT 0.2 mg/dL (0.0-0.4); BILIRUBIN,TOTAL 0.3 mg/dL (0.2-1.3); BLOOD UREA NITROGEN 8 mg/dL (7-20); CALCIUM 9.3 mg/dL (8.4-10.2); CARBON DIOXIDE 28 mmol/L (22-30); CHLORIDE 106 mmol/L (98-107); CREATINE KINASE 82 U/L (30-135); GLUCOSE 72 mg/dL (75-110); LIPASE 58.5 U/L (23-300); POTASSIUM 4.3 mmol/L (3.6-5.0); SODIUM 143.7 mmol/L (137-145); TOTAL PROTEIN 6.7 g/dL (6.3-8.2)
[2017-07-19 16:13] VITALS: BP 116/70
[2017-07-19 16:17] LABS: CREATINE KINASE MB < 0.22 ng/mL (<4.55); TROPONIN I < 0.012 ng/mL
--- NOTE | 2017-07-19 16:42 | RADIOLOGY REPORT (SQ) ---
EXAM DESCRIPTION: ELBOW LEFT AP/LATERAL COMPLETED DATE/TIME: 07/19/2017 4:30 pm REASON FOR STUDY: LEFT ARM PAIN, SHARP, N/T, WORSE AT ELBOW COMPARISON: None. NUMBER OF VIEWS: Two views. TECHNIQUE: AP and lateral radiographic images acquired of the left elbow. LIMITATIONS: None. FINDINGS: MINERALIZATION: Normal. BONES: No acute fracture or dislocation. No worrisome bone lesions. JOINT: No effusion. SOFT TISSUES: No soft tissue swelling. No foreign body. OTHER: No other significant finding. IMPRESSION: NEGATIVE STUDY OF THE LEFT ELBOW. NO RADIOGRAPHIC EVIDENCE OF ACUTE INJURY. TECHNICAL DOCUMENTATION: JOB ID: [id number] [employer]- All Rights Reserved Reading location - IP/workstation name: [email or web address]
--- NOTE | 2017-07-19 16:57 | ER Document Report ---
ED Cardiac - General Chief Complaint: Chest Pain Stated Complaint: CHEST/ARM PAIN Time Seen by Provider: 07/19/17 14:59 Mode of Arrival: Ambulatory Information source: Patient Notes: Patient is a 36-year-old female who presents to the ER today for left arm pain 3 weeks that started radiating into the left side of the chest this week. Patient has a history of anxiety and panic attacks but states that she has not had a panic attack in a few weeks and she does not think this is that. She complains of mostly the left arm pain. She has no cardiac history. She denies injury. TRAVEL OUTSIDE OF THE [place] IN LAST 30 DAYS: No COUNTRY TRAVELED TO/FROM: [facility] - Related Data Allergies/Adverse Reactions: Penicillins Allergy (Verified 07/19/17 15:00) Past Medical History - General Information source: Patient - Social History Smoking Status: Former Smoker Chew tobacco use (# tins/day): No Frequency of alcohol use: Social Drug Abuse: None Family History: Reviewed & Not Pertinent, Arthritis, CAD, DM, Hyperlipidemia, Hypertension, Malignancy. denies: COPD, CVA, Thyroid Disfunction Patient has suicidal ideation: No Patient has homicidal ideation: No Neurological Medical History: Reports: Hx Migraine Renal/ Medical History: Denies: Hx Ectopic , Hx Peritoneal Dialysis GI Medical History: Reports: Hx Gastroesophageal Reflux Disease Musculoskeltal Medical History: Reports Hx Musculoskeletal Trauma Psychiatric Medical History: Reports: Hx Depression - anxiety Traumatic Medical History: Reports: Hx Fractures - Toe Past Surgical History: Reports: Hx Oral Surgery, Hx Tubal Ligation - Immunizations Immunizations up to date: No Hx Diphtheria, Pertussis, Tetanus Vaccination: No - Tetanus Review of Systems - Review of Systems Constitutional: No symptoms reported EENT: No symptoms reported Cardiovascular: See HPI Respiratory: No symptoms reported Gastrointestinal: No symptoms reported Genitourinary: No symptoms reported Female Genitourinary: No symptoms reported Musculoskeletal: See HPI Skin: No symptoms reported Hematologic/Lymphatic: No symptoms reported Neurological/Psychological: No symptoms reported Physical Exam - Vital signs Vitals: Temp Pulse Resp BP Pulse Ox 98.4 F 71 16 120/69 100 07/19/17 14:51 07/19/17 14:51 07/19/17 14:51 07/19/17 14:51 07/19/17 14:51 - Notes Notes: PHYSICAL EXAMINATION: GENERAL: Anxious, but in no acute distress. HEAD: Atraumatic, normocephalic. EYES: Pupils equal round and reactive to light, extraocular movements intact, sclera anicteric, conjunctiva are normal. NECK: Normal range of motion, supple without lymphadenopathy LUNGS: CTAB and equal. No wheezes rales or rhonchi. HEART: Chest tender to palpation over the left, regular rate and rhythm without murmurs ABDOMEN: Soft, no tenderness. No guarding, no rebound BACK: no vertebral tenderness, normal ROM GI/: no CVA tenderness EXTREMITIES: Normal range of motion, no pitting edema. No cyanosis. NEUROLOGICAL: Cranial nerves grossly intact. Normal sensory/motor exams. PSYCH: Anxious SKIN: Warm, Dry, normal turgor, no rashes or lesions noted Course - Re-evaluation Re-evalutation: 07/19/17 18:42 Lab work is unremarkable today including normal cardiac enzymes, EKG without evidence of ischemia or abnormality, chest x-ray and elbow x-ray negative for any acute pathology, patient to follow-up with her primary care provider about arm pain which is not reproducible today, patient has full range of motion. Patient was upset that workup was normal today and required a printout of her lab work which I did give to her. - Vital Signs Vital signs: Temp Pulse Resp BP Pulse Ox 98.4 F 71 20 116/70 100 07/19/17 14:51 07/19/17 14:51 07/19/17 16:01 07/19/17 16:01 07/19/17 16:01 - Laboratory Result Diagrams: 07/19/17 15:12 07/19/17 15:12 Laboratory results interpreted by me: 07/19/17 15:12 Glucose 72 L Discharge - Discharge Clinical Impression: Chest wall pain, Left arm pain Condition: Stable Disposition: HOME, SELF-CARE Instructions: Chest Wall Pain ([facility]) Additional Instructions: Return immediately for any new or worsening symptoms. Follow up with primary care provider, call tomorrow to make followup appointment. Prescriptions: Prednisone [Deltasone 20 mg Tablet] 3 tab PO DAILY 5 Days tablet
--- NOTE | 2017-07-20 17:20 | EKG REPORT ---
SEVERITY:- NORMAL ECG - SINUS RHYTHM : Confirmed by: Irene Kapoor 20-Jul-2017 17:19:45
== END 2017-07-19 17:23 | disposition home or self-care (01) ==
LOC: ER 14:38
DX: R07.89 Other chest pain (principal); M79.602 Pain in left arm; Z87.891 Personal history of nicotine dependence
CPT/HCPCS: 36415; 71046; 80053; 82550; 82553; 83690; 84484; 85025; 93005; 93010; 99285

== ENCOUNTER 2017-10-20 11:37 | Emergency (ER) | payer MEDICAID ==
[2017-10-20 11:45] VITALS: BP 113/59
--- NOTE | 2017-10-20 12:46 | ER Document Report ---
HPI - HPI Pain Level: 3 Notes: Patient is a 36-year-old female who presents to the ED complaining of left ear pain that radiates down into her jaw and her left-sided neck times a few days. Patient states that she was placed on clindamycin several days ago as precautionary as she is having the #18 molar removed in about 2 weeks. Patient states that she started having yeast infection so she stopped the antibiotic part way through. Patient states that she does have chronic nasal congestion. Patient states that she notices the pain more so from her ear when she is chewing and opening and closing her mouth. Patient states that she does hear a "crackling." Patient states that she is allergic to penicillins and does develop a rash. She has no other concerns or complaints. She has not been swimming recently. Denies any headache, fever, head injury, neck pain, changes in vision/speech/mentation/hearing, URI, sore throat, chest pain, palpitations, syncope, cough, shortness of breath, wheeze, dyspnea, abdominal pain, nausea/ vomiting/diarrhea, urinary retention, dysuria, hematuria, or rash. - ROS Systems Reviewed and Negative: Yes All other systems reviewed and negative - CONSTITUTIONAL Constitutional: DENIES: Fever, Chills - EENT EENT: REPORTS: Ear Pain - left ear pain. DENIES: Sore Throat, Eye problems - NEURO Neurology: DENIES: Headache, Weakness, Vision blurred, Dizzinesss / Vertigo - CARDIOVASCULAR Cardiovascular: DENIES: Chest pain - RESPIRATORY Respiratory: DENIES: Trouble Breathing, Coughing - GASTROINTESTINAL Gastrointestinal: DENIES: Abdominal Pain, Black / Bloody Stools - URINARY Urinary: DENIES: Dysuria, Urgency, Frequency - REPRODUCTIVE Reproductive: DENIES: :, Postmenopausal, Abnormal bleeding / discharge - MUSCULOSKELETAL Musculoskeletal: DENIES: Extremity pain Past Medical History - Social History Smoking Status: Current Every Day Smoker Chew tobacco use (# tins/day): No Frequency of alcohol use: None Drug Abuse: None Family History: Reviewed & Not Pertinent, Arthritis, CAD, DM, Hyperlipidemia, Hypertension, Malignancy. denies: COPD, CVA, Thyroid Disfunction Patient has suicidal ideation: No Patient has homicidal ideation: No Neurological Medical History: Reports: Hx Migraine Renal/ Medical History: Denies: Hx Ectopic , Hx Peritoneal Dialysis GI Medical History: Reports: Hx Gastroesophageal Reflux Disease Musculoskeletal Medical History: Reports Hx Musculoskeletal Trauma Psychiatric Medical History: Reports: Hx Depression - anxiety Traumatic Medical History: Reports: Hx Fractures - Toe Past Surgical History: Reports: Hx Oral Surgery, Hx Tubal Ligation - Immunizations Immunizations up to date: No Hx Diphtheria, Pertussis, Tetanus Vaccination: No - Tetanus Vertical Provider Document - CONSTITUTIONAL Agree With Documented VS: Yes Notes: PHYSICAL EXAMINATION: GENERAL: Well-appearing, well-nourished and in no acute distress. HEAD: Atraumatic, normocephalic. EYES: Pupils equal round and reactive to light, extraocular movements intact, sclera anicteric, conjunctiva are normal. ENT: EAC clear b/l. TM's intact b/l without erythema, fluid, or perforation. Non-tender to palp. Nares patent and without discharge. oropharynx clear without exudates. No tonsilar hypertrophy or erythema. Moist mucous membranes. No sinus tenderness. Uvula midline. No palatine shift. No tongue protrusion. No respiratory compromise. Mouth: Poor dentition. + mild gingivitis. No obvious abscess or discharge noted. No facial swelling. + tenderness to tooth #18. NECK: Normal range of motion, supple without lymphadenopathy. No rigidity/ meningismus. LUNGS: Breath sounds clear to auscultation bilaterally and equal. No wheezes rales or rhonchi. HEART: Regular rate and rhythm without murmurs, rubs, gallops. NEUROLOGICAL: Cranial nerves grossly intact. Normal speech, normal gait. Normal sensory, motor exams PSYCH: Normal mood, normal affect. SKIN: Warm, Dry, normal turgor, no rashes or lesions noted. - INFECTION CONTROL TRAVEL OUTSIDE OF THE [place] IN LAST 30 DAYS: No COUNTRY TRAVELED TO/FROM: [facility] Course - Re-evaluation Re-evalutation: 10/20/17 12:43 Patient is an afebrile, well-hydrated, 36-year-old female who presents to the ED with dental pain #18 as well as left otalgia, suspect eustachian tube dysfunction. Vitals are acceptable without any significant tachycardia, tachypnea, or hypoxia. PE is otherwise unremarkable. Reviewed with patient that she needs to continue taking her clindamycin as directed by her dentist. I will be sending her home with a prescription for Diflucan. Reviewed with patient to take nasal decongestants and to wash out her sinuses regularly. No other labs or imaging warranted at this time based on H&P. Low suspicion for any sepsis, meningitis, severe dehydration, respiratory compromise, mastoiditis , felipe's, silvestre-tonsilar/pharyngeal abscess, or other systemic emergent condition at this time. Patient is aware that condition can change from initial presentation and she needs to monitor symptoms closely and seek medical attention with any acute changes. Conservative measures for symptoms. Recheck with your PCM in 3-5 days. Keep consult with your dentist. Return to the ED with any worsening/concerning symptoms otherwise as reviewed in discharge. Patient is in agreement. - Vital Signs Vital signs: Temp Pulse Resp BP Pulse Ox 98.9 F 18 113/59 L 100 10/20/17 11:43 10/20/17 11:43 10/20/17 11:43 10/20/17 11:43 Discharge - Discharge Clinical Impression: Pain, dental, Otalgia, left ear Eustachian tube dysfunction Qualifiers: Laterality: left Qualified Code(s): H69.82 - Other specified disorders of Eustachian tube, left ear Condition: Stable Disposition: HOME, SELF-CARE Instructions: Clindamycin ([facility]), Toothache ([facility]) Additional Instructions: [place] and floss twice daily Maintain fluid intake Take antibiotics as directed Mouthwash, salt water gargles, peroxide rinse as needed Nasal decongestant medications as reviewed and sinus rinses with saline Tylenol/ibuprofen as needed Recheck with PCM this week Keep appointment with your dentist Return to the ED with any worsening symptoms and/or development of fever, headache, facial swelling, swelling of lips/tongue/throat, trouble swallowing, drooling, hoarseness, neck pain/stiffness, chest pain, palpitations, syncope, shortness of breath, trouble breathing, abdominal pain, n/v/d, numbness/tingling , or other worsening symptoms that are concerning to you. Prescriptions: Fluconazole [Diflucan] 150 mg PO ONCE PRN #1 tablet PRN Reason: Forms: Smoking Cessation Education Referrals: DEVORA TUCKER MD [Primary Care Provider] - Follow up in 3-5 days
== END 2017-10-20 13:03 | disposition home or self-care (01) ==
LOC: ER 11:37
DX: H69.92 Unspecified Eustachian tube disorder, left ear (principal); H92.02 Otalgia, left ear; K05.10 Chronic gingivitis, plaque induced; K08.89 Other specified disorders of teeth and supporting structures; R09.81 Nasal congestion; F17.200 Nicotine dependence, unspecified, uncomplicated; Z88.0 Allergy status to penicillin
CPT/HCPCS: 99282

== ENCOUNTER 2018-02-06 22:46 | Emergency (ER) | payer MEDICAID ==
[2018-02-07] MEDS ORDERED: KETOROLAC TROMETHAMINE 60 MG/2 ML SDV IM ONE (01:36)
--- NOTE | 2018-02-07 01:37 | ER Document Report ---
ED General - General Chief Complaint: Leg Pain Stated Complaint: LEFT LEG PAIN Time Seen by Provider: 02/06/18 23:34 Notes: Patient is a 37-year-old female without chronic medical problems who presents with several years of intermittent pain to the bilateral lower 70s but has been worse over the last 3 weeks mostly to the left lower cavity. She describes it as a intermittent, stabbing, aching, constant pain below the level of the knee. She states moving or walking worsens the pain. She has not improved the pain. She did note that she normally has swelling to the but that has currently resolved. No fever or constitutional symptoms. No weakness or numbness. She has not seen her general doctor regarding today's concerns. Denies any trauma to the area. No history of DVT or pulmonary embolus. TRAVEL OUTSIDE OF THE [place] IN LAST 30 DAYS: No COUNTRY TRAVELED TO[facility]FROM: [facility] - Related Data Allergies/Adverse Reactions: Penicillins Allergy (Verified 10/20/17 12:34) Past Medical History - General Information source: Patient - Social History Smoking Status: Never Smoker Frequency of alcohol use: None Drug Abuse: None Lives with: Spouse/Significant other Family History: Reviewed & Not Pertinent, Arthritis, CAD, DM, Hyperlipidemia, Hypertension, Malignancy. denies: COPD, CVA, Thyroid Disfunction Neurological Medical History: Reports: Hx Migraine Renal/ Medical History: Denies: Hx Ectopic , Hx Peritoneal Dialysis GI Medical History: Reports: Hx Gastroesophageal Reflux Disease Musculoskeletal Medical History: Reports Hx Musculoskeletal Trauma Psychiatric Medical History: Reports: Hx Depression - anxiety Traumatic Medical History: Reports: Hx Fractures - Toe Past Surgical History: Reports: Hx Oral Surgery, Hx Tubal Ligation - Immunizations Immunizations up to date: No Hx Diphtheria, Pertussis, Tetanus Vaccination: No - Tetanus Review of Systems - Review of Systems Notes: Constitutional: Negative for fever. HENT: Negative for sore throat. Eyes: Negative for visual changes. Cardiovascular: Negative for chest pain. Respiratory: Negative for shortness of breath. Gastrointestinal: Negative for abdominal pain, vomiting or diarrhea. Genitourinary: Negative for dysuria. Musculoskeletal: Positive for left leg pain Skin: Negative for rash. Neurological: Negative for headaches, weakness or numbness. 10 point ROS negative except as marked above and in HPI. Physical Exam - Vital signs Vitals: Temp Pulse Resp BP Pulse Ox 98.8 F 80 16 118/67 97 11/09/18 23:14 02/06/18 23:14 02/06/18 23:14 02/06/18 23:14 02/06/18 23:14 Interpretation: Normal Notes: PHYSICAL EXAMINATION: GENERAL: Well-appearing, well-nourished and in no acute distress. HEAD: Atraumatic, normocephalic. EYES: Pupils equal round and reactive to light, extraocular movements intact, sclera anicteric, conjunctiva are normal. ENT: nares patent, oropharynx clear without exudates. Moist mucous membranes. NECK: Normal range of motion, supple without lymphadenopathy LUNGS: Breath sounds clear to auscultation bilaterally and equal. No wheezes rales or rhonchi. HEART: Regular rate and rhythm without murmurs ABDOMEN: Soft, nontender, normoactive bowel sounds. No guarding, no rebound. No masses appreciated. EXTREMITIES: Normal range of motion, no pitting or edema. No cyanosis. NEUROLOGICAL: Face symmetric. Tongue protrudes midline. Extraocular motions intact. Pupils are 2 mm and equally reactive. Normal speech, normal gait. 5 out of 5 strength in both the distal and proximal upper and lower extremities bilaterally. Sensation is grossly intact throughout. Finger to nose testing normal. Pronator drift normal. PSYCH: Normal mood, normal affect. SKIN: Warm, Dry, normal turgor, no rashes or lesions noted. Course - Re-evaluation Re-evalutation: 02/07/18 01:40 Patient presents with several years of intermittent bilateral lower extremity pain, worse on the left which she states has been much worse over the last 3 weeks. The patient reports that she has some swelling to the leg but this is not appreciable. She states that there are multiple areas of point tenderness including over the lateral aspect of the mid calf, in the popliteal fossa and over the central ankle. There is no obvious swelling or erythema to these areas. The patient states the pain is worsened with movement. Very difficult to ascertain will be causing this pain as it is intermittent, fluctuating and has been ongoing for years. Very little in suspicion for a DVT, rhabdomyolysis , compartment syndrome, traumatic injury, complex regional pain syndrome, or any other alternative concerning pathology. Will obtain basic screening laboratories and order DVT ultrasound as an outpatient. Also obtain x-ray of the leg to where the patient is having most of her pain to look for any underlying lesions. I cleaned the patient that there is not a clear etiology of her pain at this point and that she will require outpatient follow-up due to the degree of diagnostic uncertainty. At this time will discharge with return precautions and follow-up recommendations. Verbal discharge instructions given a the bedside and opportunity for questions given. Medication warnings reviewed. Patient is in agreement with this plan and has verbalized understanding of return precautions and the need for primary care follow-up in the next 24-72 hours. - Vital Signs Vital signs: Temp Pulse Resp BP Pulse Ox 98.8 F 78 18 116/76 100 02/06/18 23:14 02/07/18 03:00 02/07/18 03:00 02/07/18 03:00 02/07/18 03:00 - Laboratory Result Diagrams: 02/07/18 01:45 02/07/18 01:45 - Diagnostic Test Radiology reviewed: Image reviewed, Reports reviewed Radiology results interpreted by me: 02/07/18 04:29 Left tib-fib x-ray: No evidence of lesions or fractures Discharge - Discharge Clinical Impression: Leg pain, left Condition: Good Disposition: HOME, SELF-CARE Additional Instructions: Please follow-up for the venous Doppler study. Your labs are otherwise unremarkable today. Your x-ray is also normal. Return if you have worsening pain, increasing swelling to the area, fever, or any other symptoms that are worrisome to you. Forms: Follow-Up Outpatient Testing Referrals: DEVORA TUCKER MD [Primary Care Provider] - Follow up as needed
[2018-02-07 01:54] LABS: HEMATOCRIT 37.1 % (36.0-47.0); HEMOGLOBIN 12.4 g/dL (12.0-15.5); MEAN CORPUSCULAR HEMOGLOBIN 28.8 pg (27.0-33.4); MEAN CORPUSCULAR HGB CONC 33.3 g/dL (32.0-36.0); MEAN CORPUSCULAR VOLUME 87 fl (80-97); PLATELET COUNT 318 10^3/uL (150-450); RED BLOOD COUNT 4.29 10^6/uL (3.72-5.28); RED CELL DISTRIBUTION WIDTH 13.3 % (11.5-14.0); WHITE BLOOD COUNT 6.9 10^3/uL (4.0-10.5)
[2018-02-07 02:19] LABS: ANION GAP 12 (5-19); BLOOD UREA NITROGEN 12 mg/dL (7-20); CALCIUM 8.9 mg/dL (8.4-10.2); CARBON DIOXIDE 26 mmol/L (22-30); CHLORIDE 106 mmol/L (98-107); CREATINE KINASE 52 U/L (30-135); GLUCOSE 94 mg/dL (75-110); POTASSIUM 4.7 mmol/L (3.6-5.0); SODIUM 143.6 mmol/L (137-145)
--- NOTE | 2018-02-07 02:31 | RADIOLOGY REPORT (SQ) ---
EXAM DESCRIPTION: XR TIBIA FIBULA 2 VIEWS COMPLETED DATE/TME: 02/07/2018 01:37 CLINICAL HISTORY: 37 years Female, pain COMPARISON: None. Findings: Bones, joints, and soft tissues of the LEFT XR TIBIA FIBULA 2 VIEWS appear intact. IMPRESSION: No acute findings.
[2018-02-07 03:17] VITALS: BP 116/76
== END 2018-02-07 03:11 | disposition home or self-care (01) ==
LOC: ER 22:46
DX: M79.662 Pain in left lower leg (principal); M79.661 Pain in right lower leg; Z88.0 Allergy status to penicillin
CPT/HCPCS: 36415; 80048; 82550; 85027; 99284

== ENCOUNTER → 2018-02-16 | Outpatient (CLI) | payer MEDICAID ==
--- NOTE | 2018-02-16 13:50 | RADIOLOGY REPORT (SQ) ---
EXAM DESCRIPTION: VENOUS UNILATERAL LOWER COMPLETED DATE/TIME: 02/16/2018 11:48 am REASON FOR STUDY: LLE PAIN M79.605 PAIN IN LEFT LEG COMPARISON: None. TECHNIQUE: Dynamic and static pascual scale and color images acquired of the left leg venous system. Se lected spectral images acquired with additional compression and augmentation maneuvers. The contralat eral common femoral vein and saphenofemoral junction were also imaged. Images stored on PACS. LIMITATIONS: None. FINDINGS: COMMON FEMORAL: Normal phasicity, compression and augmentation. No visualized echogenic ma terial on apscual scale. No defects on color images. FEMORAL: Normal compression and augmentation. No visualized echogenic material on pascual scale. No defe cts on color images. POPLITEAL: Normal compression, augmentation. No visualized echogenic material on pascual scale. No defec ts on color images. CALF VESSELS: Normal compression, augmentation. No visualized echogenic material on pascual scale. No de fects on color images. GSV and SSV: Normal compression, augmentation. No visualized echogenic material on pascual scale. No def ects on color images. ANY DEEP VENOUS INSUFFICIENCY: Not evaluated. ANY EVIDENCE OF POPLITEAL CYST: No. OTHER: No other significant finding. CONTRALATERAL COMMON FEMORAL VEIN AND SAPHENOFEMORAL JUNCTION: Normal phasicity, compression and augmentation. No visualized echogenic material on pascual scale. No de fects on color images. IMPRESSION: NO EVIDENCE OF DVT OR SVT IN THE LEFT LEG. TECHNICAL DOCUMENTATION: JOB ID: [id number] [employer]- All Rights Reserved Reading location - IP/workstation name: [email or web address]
== END ==
LOC: SP 10:52
PROVIDERS: ATTEND Student in an Organized Health Care Education/Training Program
DX: M79.605 Pain in left leg (principal)
CPT/HCPCS: 93971

== ENCOUNTER 2018-03-05 09:33 | Emergency (ER) | payer MEDICAID ==
[2018-03-05 09:37] VITALS: BP 123/72
[2018-03-05] MEDS ORDERED: IBUPROFEN 800 MG TABLET PO ONE (09:55)
[2018-03-05] MEDS ORDERED: DEXAMETHASONE 4 MG TABLET PO ONE (09:55)
[2018-03-05] MEDS ORDERED: LIDOCAINE 2% VISCOUS SOLN 20 ML UDCUP PO ONE (09:56)
[2018-03-05] MEDS ORDERED: CLINDAMYCIN HCL 150 MG CAPSULE PO ONE (09:56)
--- NOTE | 2018-03-05 10:01 | ER Document Report ---
HPI - HPI Patient complains to provider of: Sore throat ear pain Time Seen by Provider: 03/05/18 09:48 Onset: Other - 2 days Onset/Duration: Persistent Quality of pain: Achy Pain Level: 5 Context: Patient presents complaining of sore throat and ear pain for the past 2 days. Patient reports chills but denies checking to see if she has had a fever. Patient states that she had leftover clindamycin at home and started taking the antibiotic yesterday. Patient states that when her symptoms first started she did have some chest pain that she attributed to sinus congestion symptoms but now denies any chest pain symptoms at this time. Patient states she has not had any chest discomfort today at all. Associated Symptoms: Earache, Sore throat. denies: Chest pain, Nonproductive cough, Fever, Hurts to breath, Nausea, Vomiting, Rhinnorhea Exacerbated by: Denies Relieved by: Denies Similar symptoms previously: Yes Recently seen / treated by doctor: No - ROS ROS below otherwise negative: Yes Systems Reviewed and Negative: Yes All other systems reviewed and negative - CONSTITUTIONAL Constitutional: REPORTS: Chills - EENT EENT: REPORTS: Sore Throat, Ear Pain - CARDIOVASCULAR Cardiovascular: DENIES: Chest pain - RESPIRATORY Respiratory: DENIES: Trouble Breathing, Coughing - GASTROINTESTINAL Gastrointestinal: DENIES: Abdominal Pain, Nausea, Patient vomiting - REPRODUCTIVE Reproductive: DENIES: : - MUSCULOSKELETAL Musculoskeletal: DENIES: Back Pain, Neck Pain - DERM Skin Color: Normal Skin Problems: None Past Medical History - General Information source: Patient - Social History Smoking Status: Current Every Day Smoker Smoking Education Provided: Yes Frequency of alcohol use: None Drug Abuse: None Occupation: None Family History: Reviewed & Not Pertinent, Arthritis, CAD, DM, Hyperlipidemia, Hypertension, Malignancy. denies: COPD, CVA, Thyroid Disfunction Patient has suicidal ideation: No Patient has homicidal ideation: No Neurological Medical History: Reports: Hx Migraine Renal/ Medical History: Denies: Hx Ectopic , Hx Peritoneal Dialysis GI Medical History: Reports: Hx Gastroesophageal Reflux Disease Musculoskeletal Medical History: Reports Hx Musculoskeletal Trauma Psychiatric Medical History: Reports: Hx Depression - anxiety Traumatic Medical History: Reports: Hx Fractures - Toe Past Surgical History: Reports: Hx Oral Surgery, Hx Tubal Ligation - Immunizations Immunizations up to date: No Hx Diphtheria, Pertussis, Tetanus Vaccination: No - Tetanus Vertical Provider Document - CONSTITUTIONAL Agree With Documented VS: Yes Exam Limitations: No Limitations General Appearance: WD/WN, No Apparent Distress - INFECTION CONTROL TRAVEL OUTSIDE OF THE [place] IN LAST 30 DAYS: No COUNTRY TRAVELED TO/FROM: [place] - HEENT HEENT: Atraumatic, Normocephalic, Pharyngeal Exudate, Pharyngeal Tenderness, Pharyngeal Erythema. negative: Tympanic Membrane Red, Tympanic Membrane Bulging Notes: No trismus, no peritonsillar abscess, no potential airway compromise - NECK Neck: Lymphadenopathy-Left, Lymphadenopathy-Right - RESPIRATORY Respiratory: Breath Sounds Normal, No Respiratory Distress, Chest Non-Tender. negative: Rales, Rhonchi, Wheezing - CARDIOVASCULAR Cardiovascular: Regular Rate, Regular Rhythm, No Murmur - GI/ABDOMEN Gastrointestinal: Abdomen Soft - BACK Back: Normal Inspection - MUSCULOSKELETAL/EXTREMETIES Musculoskeletal/Extremeties: MAEW, FROM - NEURO Level of Consciousness: Awake, Alert, Appropriate Motor/Sensory: No Motor Deficit - DERM Integumentary: Warm, Dry, No Rash Course - Re-evaluation Re-evalutation: 03/05/18 10:03 Patient presents with symptoms worrisome for tonsillitis, no concern for tonsillar abscess at this time. Patient states that when her symptoms initially started she had a lot of congestion and chest discomfort that she attributed to sinus drainage and mild cough. Patient denies any chest pain symptoms today and presents only reporting ear pain and throat discomfort. Patient denies needing any chest pain symptoms evaluated today and only wants her throat pain and ear pain symptoms addressed. Breath sounds clear bilaterally, no anterior chest wall tenderness reproduced with palpation. No abdominal tenderness. - Vital Signs Vital signs: Temp Pulse Resp BP Pulse Ox 99.6 F 94 16 123/72 97 03/05/18 09:34 03/05/18 09:34 03/05/18 09:34 03/05/18 09:34 03/05/18 09:34 Discharge - Discharge Clinical Impression: Tonsillitis Otalgia Qualifiers: Laterality: bilateral Qualified Code(s): H92.03 - Otalgia, bilateral Condition: Stable Disposition: HOME, SELF-CARE Instructions: Clindamycin ([facility]), Corticosteroid Medication ([facility]), Use of Over- The-Counter Ibuprofen ([facility]), Tonsillitis ([facility]) Additional Instructions: Return immediately for any new or worsening symptoms Followup with your primary care provider, call tomorrow to make a followup appointment Increase oral fluids and stay well-hydrated Prescriptions: Clindamycin HCl [Cleocin Hcl] 300 mg PO QID #28 capsule Hydrocodone/Acetaminophen [Lortab 7.5-325 mg/15 ml Oral Soln] 10 ml PO Q6H PRN # 60 ml PRN Reason: Naproxen [Naprosyn 250 Nmg Tablet] 1 tab PO BID #14 tablet Forms: Smoking Cessation Education Referrals: RYAN GERMAIN DO [NO LOCAL MD] - Follow up as needed
== END 2018-03-05 10:25 | disposition home or self-care (01) ==
LOC: ER 09:33
DX: J03.90 Acute tonsillitis, unspecified (principal); H92.03 Otalgia, bilateral; F17.200 Nicotine dependence, unspecified, uncomplicated; Z98.51 Tubal ligation status
CPT/HCPCS: 99283; J3490 ×4

== ENCOUNTER 2018-05-18 11:01 | Emergency (ER) | payer MEDICAID ==
[2018-05-18 11:09] VITALS: BP 111/59
[2018-05-18] MEDS ORDERED: FLUCONAZOLE 100 MG TABLET PO ONE (11:48)
--- NOTE | 2018-05-18 11:53 | ER Document Report ---
ED General - General Chief Complaint: Vaginal Pain Stated Complaint: URINARY ISSUES Time Seen by Provider: 05/18/18 11:42 Primary Care Provider: RYAN TUCKER DO [Primary Care Provider] - Follow up as needed Notes: Patient is a 37-year-old female that presents to the emergency department for chief complaint of vaginal itching and pain. Patient states that she was recently placed on clindamycin for treatment prior to dental procedure, and several days after she started having vaginal itching and pain, and started having some peeling around the labia of the skin which she has had in the past. She has noticed some white discharge as well. Consistent with prior yeast infections that she is had. She is not taking the clindamycin about 4 days ago, but still having the symptoms so she decided come to the emergency department today. She denies having any issues in regards to her teeth, denies having any fevers, chills, night sweats, nausea, vomiting. She states she had a tubal ligation, does not believe that she is . Denies having any dysuria or hematuria, but states it does burn when she urinates on the skin itself. Past Medical History: Seasonal allergies Past Surgical History: Tubal ligation Social History: Admits to smoking cigarettes, and rare alcohol use, denies illicit drug use. Family History: Reviewed and noncontributory for presenting illness Allergies: Reviewed, see documented allergy list. REVIEW OF SYSTEMS: Other than noted above, the 12 point review of systems was reviewed with the patient and were negative, all pertinent findings are included in the HPI. PHYSICAL EXAMINATION: Vital signs reviewed, nursing noted reviewed. GENERAL: Well-appearing, well-nourished and in no acute distress. HEAD: Atraumatic, normocephalic. EYES: Eyes appear normal, sclera anicteric, conjunctiva are normal. ENT: Moist mucous membranes. NECK: Normal range of motion, supple without lymphadenopathy LUNGS: Breath sounds clear to auscultation bilaterally and equal. No wheezes rales or rhonchi. HEART: Regular rate and rhythm without murmurs EXTREMITIES: Nontender, good range of motion, no pitting or edema. NEUROLOGICAL: No focal neurological deficits. Moves all extremities spontaneously Motor and sensory grossly intact on exam. PSYCH: Normal mood, normal affect. SKIN: Warm, Dry, normal turgor, no rashes or lesions noted on exposed skin TRAVEL OUTSIDE OF THE [place] IN LAST 30 DAYS: No COUNTRY TRAVELED TO/FROM: [place] - Related Data Allergies/Adverse Reactions: Penicillins Allergy (Verified 05/18/18 11:04) Past Medical History - Social History Smoking Status: Current Every Day Smoker Frequency of alcohol use: Occasional Drug Abuse: None Family History: Reviewed & Not Pertinent, Arthritis, CAD, DM, Hyperlipidemia, Hypertension, Malignancy. denies: COPD, CVA, Thyroid Disfunction Patient has suicidal ideation: No Patient has homicidal ideation: No Neurological Medical History: Reports: Hx Migraine Renal/ Medical History: Denies: Hx Ectopic , Hx Peritoneal Dialysis GI Medical History: Reports: Hx Gastroesophageal Reflux Disease Musculoskeletal Medical History: Reports Hx Musculoskeletal Trauma Psychiatric Medical History: Reports: Hx Depression - anxiety Traumatic Medical History: Reports: Hx Fractures - Toe Past Surgical History: Reports: Hx Oral Surgery, Hx Tubal Ligation - Immunizations Immunizations up to date: No Hx Diphtheria, Pertussis, Tetanus Vaccination: No - Tetanus Physical Exam - Vital signs Vitals: Temp Pulse Resp BP Pulse Ox 98.9 F 90 16 111/59 L 99 05/18/18 11:08 05/18/18 11:08 05/18/18 11:08 05/18/18 11:08 05/18/18 11:08 Course - Re-evaluation Re-evalutation: Patient will be treated for vaginal candidiasis with a single dose of Diflucan 150 mg, given in the emergency department, she is advised to follow-up with her dentist in regards to whether to continue the clindamycin or not, she is also advised to use a barrier ointment to help with skin healing, patient was agreeable to this plan of care, all questions answered and she is discharged home. - Vital Signs Vital signs: Temp Pulse Resp BP Pulse Ox 98.9 F 90 16 111/59 L 99 05/18/18 11:08 05/18/18 11:08 05/18/18 11:08 05/18/18 11:08 05/18/18 11:08 Discharge - Discharge Clinical Impression: Vaginal candidiasis Condition: Stable Disposition: HOME, SELF-CARE Instructions: Vaginal Yeast Infection ([facility]) Referrals: RYAN TUCKER DO [Primary Care Provider] - Follow up in 3-5 days
== END 2018-05-18 11:57 | disposition home or self-care (01) ==
LOC: ER 11:01
DX: B37.3 Candidiasis of vulva and vagina (principal); F17.210 Nicotine dependence, cigarettes, uncomplicated; Z88.0 Allergy status to penicillin
CPT/HCPCS: 99283; J3490

== ENCOUNTER 2018-12-23 21:45 | Emergency (ER) | payer MEDICAID ==
[2018-12-23] MEDS ORDERED: LIDOCAINE 5% (700 MG) TRANSDERMAL ADH..PATCH TP ONE (22:24)
--- NOTE | 2018-12-23 22:26 | ER Document Report ---
ED Medical Screen (RME) - General Chief Complaint: Chest Pain Stated Complaint: CHEST AND SHOULDER PAIN Time Seen by Provider: 12/23/18 22:21 Primary Care Provider: RYAN TUCKER DO [Primary Care Provider] - Follow up as needed Mode of Arrival: Ambulatory Information source: Patient Notes: Patient presents to the emergency department with complaints of neck stiffness pain mostly on her right shoulder right side of her neck for over a week and half. Reports she is taking [id number] medications muscle relaxers without relief of symptoms. Denies trauma. No other complaints such as fever vomiting diarrhea. I have greeted and performed a rapid initial assessment of this patient. A comprehensive ED assessment and evaluation of the patient, analysis of test results and completion of the medical decision making process will be conducted by additional ED providers. Dictation of this chart was performed using voice recognition software; therefore, there may be some unintended grammatical errors. TRAVEL OUTSIDE OF THE [place] IN LAST 30 DAYS: No COUNTRY TRAVELED TO/FROM: [facility] - Related Data Allergies/Adverse Reactions: Penicillins Allergy (Verified 07/25/18 14:13) Past Medical History - Social History Frequency of alcohol use: Occasional Neurological Medical History: Reports: Hx Migraine Renal/ Medical History: Denies: Hx Ectopic , Hx Peritoneal Dialysis GI Medical History: Reports: Hx Gastroesophageal Reflux Disease Musculoskeltal Medical History: Reports Hx Musculoskeletal Trauma Psychiatric Medical History: Reports: Hx Depression - anxiety Traumatic Medical History: Reports: Hx Fractures - Toe Past Surgical History: Reports: Hx Oral Surgery, Hx Tubal Ligation - Immunizations Immunizations up to date: No Hx Diphtheria, Pertussis, Tetanus Vaccination: No - Tetanus Physical Exam - Vital signs Vitals: Temp Pulse Resp BP Pulse Ox 98.2 F 80 18 104/66 99 12/23/18 22:14 12/23/18 22:14 12/23/18 22:14 12/23/18 22:14 12/23/18 22:14 Course - Vital Signs Vital signs: Temp Pulse Resp BP Pulse Ox 98.2 F 80 18 104/66 99 12/23/18 22:14 12/23/18 22:14 12/23/18 22:14 12/23/18 22:14 12/23/18 22:14 Doctor's Discharge - Discharge Referrals: RYAN TUCKER DO [Primary Care Provider] - Follow up as needed
--- NOTE | 2018-12-24 01:47 | ER Document Report ---
ED General - General Chief Complaint: Chest Pain Stated Complaint: CHEST AND SHOULDER PAIN Time Seen by Provider: 12/23/18 22:21 Primary Care Provider: RYAN TUCKER DO [Primary Care Provider] - Follow up as needed Mode of Arrival: Ambulatory TRAVEL OUTSIDE OF THE [place] IN LAST 30 DAYS: No COUNTRY TRAVELED TO/FROM: [facility] - [facility] Notes: 38-year-old female presents with right-sided neck pain. Patient describes several days of increasing pain in her right trapezius and posterior lateral neck region. She states she did injure her elbow several weeks ago and is now been trying to sleep differently. Think she may have slept wrong. Sharp throbbing achy pain, worse when turning her head or moving her shoulder. No discrete injury. No fever, chills or sweats. Adamantly denies any chest pain. No other modifying factors, no other associated symptoms, no other provocative or palliative factors. Seen by physician in triage prior to my evaluation, EKG is obtained, Lidoderm patches ordered. - Related Data Allergies/Adverse Reactions: Penicillins Allergy (Verified 07/25/18 14:13) Past Medical History - General Information source: Patient - Social History Smoking Status: Unknown if Ever Smoked Frequency of alcohol use: Occasional Family History: Reviewed & Not Pertinent, Arthritis, CAD, DM, Hyperlipidemia, Hypertension, Malignancy. denies: COPD, CVA, Thyroid Disfunction Patient has suicidal ideation: No Patient has homicidal ideation: No - Medical History Medical History: Negative Neurological Medical History: Reports: Hx Migraine Renal/ Medical History: Denies: Hx Ectopic , Hx Peritoneal Dialysis GI Medical History: Reports: Hx Gastroesophageal Reflux Disease Musculoskeletal Medical History: Reports Hx Musculoskeletal Trauma Psychiatric Medical History: Reports: Hx Depression - anxiety Traumatic Medical History: Reports: Hx Fractures - Toe Past Surgical History: Reports: Hx Oral Surgery, Hx Tubal Ligation - Immunizations Immunizations up to date: No Hx Diphtheria, Pertussis, Tetanus Vaccination: No - Tetanus Review of Systems - Review of Systems Notes: Review of systems as in history of present illness, otherwise no significant headache, chest pain, abdominal pain. Physical Exam - Vital signs Vitals: Temp Pulse Resp BP Pulse Ox 98.2 F 80 18 104/66 99 12/23/18 22:14 12/23/18 22:14 12/23/18 22:14 12/23/18 22:14 12/23/18 22:14 - Notes Notes: General: Well devloped, no acute distress. HEENT: Normocephalic, atraumatic. Pupils equal round reactive to light. Mucosa moist. No JVD. Chest: No trauma, normal excursion. Respiratory: Good air exchange, normal excursion. Cardiac: Regular rhythm Abdomen: Soft, benign. Nondistended. Back: No asymmetry or gross abnormality. Motor: Grossly normal power and tone. Neurologic: Alert, nonfocal. Vascular: Well perfused Skin: No petechiae or purpura Evaluation of the right trapezius area neck shows mild muscle spasm, no edema or erythema, no asymmetry. No adenopathy. No mass. Course - Re-evaluation Re-evalutation: 12/24/18 01:47 Well-appearing patient with muscle spasm likely torticollis. No high risk features, normal neurologic exam. Patient seen by physician in triage prior to my evaluation, Lidoderm patch is not helping at her request I removed it. EKG is unremarkable. We will treat with outpatient diclofenac, Flexeril, return if worsening. - Vital Signs Vital signs: Temp Pulse Resp BP Pulse Ox 98.2 F 80 18 104/66 99 12/23/18 22:14 12/23/18 22:14 12/23/18 22:14 12/23/18 22:14 12/23/18 22:14 - EKG Interpretation by Me EKG shows normal: Sinus rhythm, [place], Intervals, QRS Complexes Discharge - Discharge Clinical Impression: Neck strain Qualifiers: Encounter type: initial encounter Qualified Code(s): S16.1XXA - Strain of muscle, fascia and tendon at neck level, initial encounter Condition: Good Disposition: HOME, SELF-CARE Instructions: Torticollis ([facility]) Prescriptions: Diclofenac Sodium 75 mg PO Q12 7 Days #14 tablet. Cyclobenzaprine HCl [Flexeril 10 mg Tablet] 10 mg PO TIDP PRN #15 tab NS PRN Reason: Referrals: RYAN TUCKER DO [Primary Care Provider] - Follow up as needed
[2018-12-24 02:03] VITALS: BP 107/54
--- NOTE | 2018-12-24 09:18 | EKG REPORT ---
SEVERITY:- NORMAL ECG - SINUS RHYTHM : Confirmed by: Irene Kapoor 24-Dec-2018 09:17:11
== END 2018-12-24 02:04 | disposition home or self-care (01) ==
LOC: ER 21:45
DX: S16.1XXA Strain of muscle, fascia and tendon at neck level, initial encounter (principal); R07.9 Chest pain, unspecified; M54.2 Cervicalgia; M54.6 Pain in thoracic spine; X58.XXXA Exposure to other specified factors, initial encounter
CPT/HCPCS: 93005; 99283; 93010; J3490

== ENCOUNTER 2019-01-04 08:37 | Emergency (ER) | payer MEDICAID ==
--- NOTE | 2019-01-04 10:34 | ER Document Report ---
ED Neck/Back Problem - General Chief Complaint: Neck Pain >24hrs old Stated Complaint: NECK PAIN Time Seen by Provider: 01/04/19 10:07 Information source: Patient TRAVEL OUTSIDE OF THE [place] IN LAST 30 DAYS: No - HPI Patient complains to provider of: Pain, Neck Onset: Last week Where: Home Onset: Gradual Severity: Moderate Pain Level: 3 Recent injury: No Associated symptoms: None Exacerbated by: Movement of neck Relieved by: Nothing Notes: 38 year old woke up with sore neck last week. It is worse over the past few days. Taking flexeril and it is not working. Taking NSAIDs also and it is not helping either. She has tried ice and heat rub without success too. - Related Data Allergies/Adverse Reactions: Penicillins Allergy (Verified 12/11/18 10:59) Past Medical History - Social History Smoking Status: Current Every Day Smoker Frequency of alcohol use: Occasional Drug Abuse: None Family History: Reviewed & Not Pertinent Patient has suicidal ideation: No Patient has homicidal ideation: No Renal/ Medical History: Denies: Hx Peritoneal Dialysis Past Surgical History: Reports: Hx Tubal Ligation Review of Systems - Review of Systems Constitutional: No symptoms reported EENT: No symptoms reported Cardiovascular: No symptoms reported Respiratory: No symptoms reported Gastrointestinal: No symptoms reported Genitourinary: No symptoms reported Female Genitourinary: No symptoms reported Musculoskeletal: See HPI, Back pain, Muscle stiffness, Neck pain Skin: No symptoms reported Hematologic/Lymphatic: No symptoms reported Neurological/Psychological: No symptoms reported Physical Exam - Vital signs Vitals: Temp Pulse Resp BP Pulse Ox 99.0 F 67 16 109/61 100 01/04/19 08:44 01/04/19 08:44 01/04/19 08:44 01/04/19 08:44 01/04/19 08:44 Interpretation: Normal - General General appearance: Appears well, Alert - HEENT Head: Normocephalic, Atraumatic Eyes: Normal Pupils: PERRL - Respiratory Respiratory status: No respiratory distress Chest status: Nontender Breath sounds: Normal Chest palpation: Normal - Cardiovascular Rhythm: Regular Heart sounds: Normal auscultation Murmur: No - Abdominal Inspection: Normal Distension: No distension Bowel sounds: Normal Tenderness: Nontender Organomegaly: No organomegaly - Back Back: Normal, Nontender - Extremities General upper extremity: Normal inspection, Nontender, Normal color, Normal ROM, Normal temperature General lower extremity: Normal inspection, Nontender, Normal color, Normal ROM, Normal temperature, Normal weight bearing. No: Nelson's sign Notes: Neck with decreased ROM with rotation and side bending. No palpable deformity. Trapezius on right very ttp. - Neurological Neuro grossly intact: Yes Cognition: Normal Orientation: AAOx4 [place] Coma Scale Eye Opening: Spontaneous [place] Coma Scale Verbal: Oriented [place] Coma Scale Motor: Obeys Commands [place] Coma Scale Total: 15 Speech: Normal Motor strength normal: LUE, RUE, LLE, RLE Sensory: Normal - Psychological Associated symptoms: Normal affect, Normal mood - Skin Skin Temperature: Warm Skin Moisture: Dry Skin Color: Normal Course - Re-evaluation Re-evalutation: 01/05/19 18:53 MDM 38 year old awoke with neck pain and decreasing rom over several days. Old chart from last week reviewed. NSAID and flexeril are not helping at this point. We have discussed follow up and isometric exercises. She expressed understanding. - Vital Signs Vital signs: Temp Pulse Resp BP Pulse Ox 98.0 F 55 L 16 105/55 L 100 01/04/19 11:47 01/04/19 11:47 01/04/19 08:44 01/04/19 11:47 01/04/19 11:47 Discharge - Discharge Clinical Impression: Cervical strain, acute Qualifiers: Encounter type: subsequent encounter Qualified Code(s): S16.1XXD - Strain of muscle, fascia and tendon at neck level, subsequent encounter Condition: Good Disposition: HOME, SELF-CARE Instructions: Ice Massage ([facility]), Ice Packs ([facility]), Neck Injury (Cervical Strain) ([facility]) Additional Instructions: Rest, ice to neck. See your doctor in follow up. Please return here for any problems or any concerns. Use ice and alternate ice and heat as described. Take medicine as perscribed. Prescriptions: Ibuprofen [Motrin 600 mg Tablet] 600 mg PO TID 10 Days #30 tablet Diazepam [Valium 5 mg Tablet] 5 mg PO TID #15 tablet
[2019-01-04] MEDS ORDERED: HYDROMORPHONE HCL INJ/PF 2 MG/ML AMPULE IM ONE (10:38)
[2019-01-04 11:47] VITALS: BP 105/55
== END 2019-01-04 11:46 | disposition home or self-care (01) ==
LOC: ER 08:37 → MERGE 08:37 → ER 11:46
DX: S16.1XXD Strain of muscle, fascia and tendon at neck level, subsequent encounter (principal); M54.2 Cervicalgia; X58.XXXD Exposure to other specified factors, subsequent encounter; Z79.899 Other long term (current) drug therapy; F17.200 Nicotine dependence, unspecified, uncomplicated
CPT/HCPCS: 99283; 96372; J1170